=== PATIENT | female | born 1990 | race Caucasian/White ===

== ENCOUNTER → 2022-09-12 13:35 | Outpatient (BNVA) | payer OTHER, MEDICARE, MEDICAID, SELFPAY | PROVIDERS: Visit Provider Physician Assistant Surgical ==

== ENCOUNTER 2022-11-17 09:56 | Outpatient (AMB) | payer OTHER, MEDICARE, MEDICAID, SELFPAY ==
--- NOTE | 2022-11-17 09:57 | A.OFFVIS_ITS ---
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 BMI 45.9 Day Care Teacher Required: No Allergies methylphenidate [Ritalin] Allergy (Unknown, Verified 09/12/22 13:46) Unknown Medication List - Last Reconciled 11/17/22 by IVY Zhu atorvastatin 80 mg PO DAILY clonazepam 1 mg PO BEDTIME daridorexant (Quviviq) 25 mg PO BEDTIME desvenlafaxine succinate ER 50 mg PO DAILY fremanezumab-vfrm (Ajovy) 225 mg subcut [id number] levothyroxine 75 mcg PO DAILY lurasidone (Latuda) 20 mg PO DAILY omeprazole 20 mg PO DAILY prazosin 1 mg PO BEDTIME pregabalin 75 mg PO BID rimegepant (Nurtec ODT) 75 mg PO Q OTHER DAY HPI HPI Comments History of Present Illness Details Pt is here to start the [facility] Weight Management surgical weight loss program. She heard about our program from her PCP. Her goal is to lose weight and achieve a healthy lifestyle as well as to improve, if not resolve, obesity related medical conditions, including HLD. She reports first being concerned about her weight a couple years ago, highest weight to date was 310. Current weight is 303.4 with a BMI of 46.1. She has tried multiple methods of weight loss including fad diets without permanent results. She lives with and daughter. 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 She wakes at:?7 am, and goes to bed at?8 pm. Dinner is at 7 pm. 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 GERD score: 20 MAE score: 7 ESS score: 10 QOL score: 129 PFSH Surgical History History of ankle surgery History of surgery on wrist Hx of section Hx of knee surgery Hx of ovarian cystectomy Family History Mother No problems noted. Father Afib Brother No problems noted. Sister No problems noted. Daughter Asthma Social History Alcohol intake: never Patient Tobacco Use Status: Never used Tobacco Review of Systems Const All systems reviewed & are unremarkable except as noted in HPI and below Physical Exam Vital Signs: Last Vital Signs Temp 97.1 F 11/17/22 10:04 Pulse 66 11/17/22 10:04 BP 115/64 11/17/22 10:04 Pulse Ox 98 11/17/22 10:04 Oxygen Delivery Method Room Air 11/17/22 10:04 BMI result Body Mass Index 46.1 Const General: cooperative, healthy appearing and no acute distress Orientation/consciousness: patient oriented x3 HEENT Head: Yes normal to inspection Ears: hearing grossly normal bilaterally General nose exam: Normal external nose present Face and sinus: Yes normal facial exam Eyes General: appearance normal, both eyes and all related structures Resp Effort & Inspection: normal respiratory effort Auscultation: clear to auscultation bilaterally Cardio Rate: regular rate Rhythm: regular rhythm Heart sounds: S1 normal heart sound present and S2 normal heart sound present GI Inspection: Yes normal to inspection, No distended and Yes obesity Palpation (GI): Soft to palpation, nontender and no guarding Auscultation: normal bowel sounds Skin General skin exam: no rashes or lesions noted Neuro General: patient oriented x3 Extrem General: No edema Psych Appearance: grossly normal Mental Status: mental status grossly normal Speech and movement: Normal speech and movement present Affect: normal affect Attitude: cooperative Assessment & Plan Assessment & Plan (1) Morbid obesity: Code(s): E66.01 - Morbid (severe) obesity due to excess calories Plan: This is a?32 yo female who will start our SWL program to prepare for bariatric surgery.? Blood work, h pylori , CXR, ECG, Abd US and UGI have been ordered. She is being scheduled for RD and BH initial consultations. She will start SWL clas ses and watch the first three videos before her next appointment. ? Adequate sleep of 7-8 hours per night discussed, awakening at 7 am and going to bed at 8 pm ? Purchase body composition analyzer scale (Jez brady or Tarun recommended) and check weight weekly. The best time to do this is first thing in the morning after going to the bathroom. 1. Nutritional counseling: Be sure to careful read the number of scoops per shake Start with 2 Isopure shakes (Target, [employer], [employer], Amazon), (1 scoop in 8 oz low fat unsweetened almond milk each) First shake at 8am-10am, Second shake at 12pm-2pm 1 protein bar (Pure Protein bars at Target, CVS, or [employer]) at 3pm-5pm. Dinner at 7pm (10 forks of protein and 10 forks of salad/vegetables). Meal to include lean meat (beef, fish, pork, turkey, chicken), cooked vegetables or a salad with olive oil and/or fruits (berries, pears, apples, kiwi). Avoid salt, breads, potatoes, rice, pasta, desserts. Try to drink 64 oz of water daily and avoid soda and juices. ?2. Each shake would be drunk slowly, like coffee in a period of 2 hours. ?3. Cut each bar in 4 pieces and eat each piece in 30 min ?to make each bar last 2 hours. ?4. I emphasized the importance of measuring accurately the food portion and measure it carefully when serving the food on the plate ?5. The meal portions include 10 full-size forks of meat and 10 full-size forks of salad. You always eat the meat portion but you can replace up to half of the forks of salad/vegetables with rice, potatoes or pasta, or a fruit ?if you like. The less you do it the better weight loss will be. ?6. One full-size fork is what can be scooped on the fork without falling aside and not what can be bit with the fork. Use regular forks like those you find in a typical restaurant. ?7.? Please send me weight measurements as soon as possible and then once a week. Always include your diet and exercise plan. Alternatively come weekly at the office for weight checks and send me the measurements. ?8. Exercise counseling: Begin by watching a stretching for beginners video. Start slowly and begin to stretch your muscles. You should do this before and after each exercise session to prevent injury. Please join [facility] gym near your home. Ask the reconciliation manager or one of the trainers how to use the machines if you are unfamiliar with them. Start elliptical with a resistance of 2. Increase resistance by 1 every 3 min to your most comfortable resistance with a max resistance of 8. Reduce the resistance by 1 every 3 minutes back down to 2 and repeat cycles for 300 calories. Alternatively, start treadmill with a speed of 3.0 and incline of 0, increasing incline by 1 every 3 minutes to the highest comfortable level (max 6 for now) then decrease in the same fashion. Repeat p rocess to a goal of 300 calories. Goal of 2000 calories burned or more weekly. You may also consider use of the stationary bike. The easiest would be to chose the fat-burn or interval training program on the machine and do this until you reach the 300 calorie goal. Alternatively, you can manually adjust the resistance in a similar fashion as mentioned above, (resistance of 2-8 with a goal speed of 12 mph). Tracking calories is essential. 9. Alternatively start walking outside daily, tracking calories with a goal of 300 calories per day, daily. You can download the oscar [employer] which can track your time, distance and calories while walking outside. You press start in the oscar when you start and then stop when you are finished. 10.? It is important to avoid and for at least 18 months postoperatively 11. Please get labs, EKG and chest X-Ray within 1 week. 12. Discussed and answered all questions regarding?obtained consent to participate in the [facility]?Registry. 13. Please follow the diet plan exactly, without any change. If you do not like something about the plan or you feel hungry, you need to communicate with me so I can help you revise the plan. You should not change the plan yourself. Text me at [phone] 14. Goal is to lose at least 12 pounds in the first month 15. Goal is to lose 10% of your weight before surgery, which is about 30 lbs. Ultimate weight goal: 273 lbs before surgery Patient is morbidly obese and is not considered stable at this time.?I spent a total of 70 minutes reviewing/updating records, examining the patient and counseling the patient on weight management as detailed above. Orders: Orders Vitamin B12 and Folate Today E66.01 - Morbid (severe) obesity due to excess calories, E78.00 - Pure hypercholesterolemia, unspecified Comprehensive Met. Panel Today E66.01 - Morbid (severe) obesity due to excess calories, E78.00 - Pure hypercholesterolemia, unspecified C Reactive Protein Today E66.01 - Morbid (severe) obesity due to excess calories, E78.00 - Pure hypercholesterolemia, unspecified Ferritin Today E66.01 - Morbid (severe) obesity due to excess calories, E78.00 - Pure hypercholesterolemia, unspecified Hemoglobin A1c Today E66.01 - Morbid (severe) obesity due to excess calories, E78.00 - Pure hypercholesterolemia, unspecified Insulin Today E66.01 - Morbid (severe) obesity due to excess calories, E78.00 - Pure hypercholesterolemia, unspecified IRON PROFILE Today E66.01 - Morbid (severe) obesity due to excess calories, E78.00 - Pure hypercholesterolemia, unspecified Lipid Panel Today E66.01 - Morbid (severe) obesity due to excess calories, E78.00 - Pure hypercholesterolemia, unspecified PTHI Today E66.01 - Morbid (severe) obesity due to excess calories, E78.00 - Pure hypercholesterolemia, unspecified TSH reflex Free T4 Today E66.01 - Morbid (severe) obesity due to excess calories, E78.00 - Pure hypercholesterolemia, unspecified Vitamin A Today E66.01 - Morbid (severe) obesity due to excess calories, E78.00 - Pure hypercholesterolemia, unspecified Vitamin B1 Today E66.01 - Morbid (severe) obesity due to excess calories, E78.00 - Pure hypercholesterolemia, unspecified Vitamin D 25-OH Total Today E66.01 - Morbid (severe) obesity due to excess calories, E78.00 - Pure hypercholesterolemia, unspecified Zinc Today E66.01 - Morbid (severe) obesity due to excess calories, E78.00 - Pure hypercholesterolemia, unspecified ECG 12 lead EKG Today E66.01 - Morbid (severe) obesity due to excess calories, E78.00 - Pure hypercholesterolemia, unspecified FL upper GI w air Today E66.01 - Morbid (severe) obesity due to excess calories, E78.00 - Pure hypercholesterolemia, unspecified Complete Blood Count Auto Diff Today E66.01 - Morbid (severe) obesity due to excess calories, E78.00 - Pure hypercholesterolemia, unspecified H Pylori Breath Test Today E66.01 - Morbid (severe) obesity due to excess calories, E78.00 - Pure hypercholesterolemia, unspecified US abdomen comp w elastography Today E66.01 - Morbid (severe) obesity due to excess calories, E78.00 - Pure hypercholesterolemia, unspecified XR chest 2V Today E66.01 - Morbid (severe) obesity due to excess calories, E78.00 - Pure hypercholesterolemia, unspecified Referrals Behavioral Health Referral E66.01 - Morbid (severe) obesity due to excess calories, E78.00 - Pure hypercholesterolemia, unspecified Nutrition/Dietitian Referral E66.01 - Morbid (severe) obesity due to excess calories, E78.00 - Pure hypercholesterolemia, unspecified Coding Level of Care Code New Pt Level 5 (02516) Diagnoses Morbid obesity E66.01 Time Spent (min) 70
[2022-11-17 10:04] VITALS: BP 115/64; PULSE 66; TEMP 36.2; O2SAT 98; BMI 46.1
== END 2022-11-17 10:56 | disposition home or self-care (01) ==
PROVIDERS: Visit Provider Physician Assistant Surgical
DX: E66.01 Morbid (severe) obesity due to excess calories (principal); Z68.42 Body mass index [BMI] 45.0-49.9, adult
CPT/HCPCS: 99205

== ENCOUNTER → 2022-11-17 09:56 | Outpatient (BNVA) | payer OTHER, MEDICARE, MEDICAID, SELFPAY | PROVIDERS: Visit Provider Physician Assistant Surgical ==

== ENCOUNTER 2022-12-04 09:23 | Outpatient (AMB) | payer OTHER, MEDICARE, MEDICAID, SELFPAY ==
--- NOTE | 2022-12-04 09:15 | MHC.AMNUTRGE ---
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: VIDEO Initial Nutrition SWL Allergies methylphenidate [Ritalin] Allergy (Unknown, Verified 09/12/22 13:46) Unknown HPI Nutrition Presentation Reason for consult elevated BMI Diet Assmnt Details pt states she is following her plan without issue Using Isopure protein powder in almond milk. 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 not really receptive to suggestion of wearing it. SWL online classes: none Dietary counseling reduction Who buys your food self Who prepares/cooks your food self Diagnosis Nutrition problem #1 overweight/obesity As related to (etiology) #1 excess energy intake and physical inactivity As evidenced by (sign/symptom) #1 high BMI Monitoring/Goals Nutrition problem monitoring total energy intake, level of knowledge/skill, total PRO intake, total CHO intake, weight and oral fluids Outcome progress progressing Learning/Education Readiness to learn fair Stages of change action Most Recent Diabetes Results: No Data to Display [facility] Surgical History History of ankle surgery History of surgery on wrist Hx of section Hx of knee surgery Hx of ovarian cystectomy Family History Mother No problems noted. Father Afib Brother No problems noted. Sister No problems noted. Daughter Asthma Social History Alcohol intake: never Patient Tobacco Use Status: Never used Tobacco Assessment & Plan Assessment & Plan (1) Morbid obesity: Code(s): E66.01 - Morbid (severe) obesity due to excess calories Patient Instructions: Pt will be seen again. pt had no questions or concerns today. stated she was following her plan without issue. complete online classes and follow up wtih de in 6 weeks Telehealth Telehealth Location of provider rendering services: other (home address) Location of patient: address on file Patient Identification confirmed using: Name, : Yes Telehealth method: voice only Patient verbally consented to treatment: Yes Patient verbally consented to billing insurance company: Yes Patient informed of any privacy concerns related to visit: Yes Minutes spent on Phone/Video with Pt.: 10 Coding Level of Care Code Nutr Indiv Intake (35089) Diagnoses Morbid obesity E66.01 Time Spent (min) 10
--- OUTSIDE RECORDS SUMMARY | 2022-12-04 09:25 | XMS_ITS | Continuity of Care Document ---
Author Name Unknown Organization [facility] Address [address] [place] [address]- Care Team Providers Care Research Anthropologist Name Role Phone Aydee SMITH, Shaylee Willard Primary Care Physician Encounter [facility] [place] [facility] Date(s): 12/04/20 - 12/11/20 [facility] [address] [place], [place] [address] Attending Physician: Angelic Llanos MD Referring Physician: Shaylee Bajwa NP Allergies, Adverse Reactions, Alerts Substance Reaction Severity Status Voltaren diarrhea upset stomach Nausea Active Ritalin unknown - childhood reaction Active Other Food Allergy 1 [place] nuts = dry heaves Active NSAIDs 2, 3 migraines Active 1pine nuts 2States that she can tolerate toradol 3sensitivity occurs with long duration of use. Can tolerate intermittent doses Immunizations Given and Recorded Vaccine Date Status Refusal Reason Human Papillomavirus Vaccine 06/05/14 Given Human Papillomavirus Vaccine 12/23/13 Given Medications busPIRone 7.5 mg oral tablet 1 tablet = 7.5 mg, By Mouth, 3 times a day, # 90 tablet, 0 Refills, Maintenance, 08/18/19 15:40:00 EDT, Tablet Start Date: 08/18/19 Status: Ordered Emgality Prefilled Pen 120 mg/mL subcutaneous solution Subcutaneous Infusion, Every 28 days, 0 Refills, Maintenance, 08/18/19 15:39:00 EDT Start Date: 08/18/19 Status: Ordered LaMICtal 100 mg oral tablet 100 mg, 1, tablet, By Mouth, 2 times a day, # 60 tablet, Refills 0, Maintenance, 08/18/19 15:39:00 EDT Start Date: 08/18/19 Status: Ordered Latuda By Mouth, Daily, 0 Refills, Maintenance, 06/27/20 13:53:00 EST, Partial fill upon patient request if the prescription is for a schedule II opioid drug. Start Date: 06/27/20 Status: Ordered levothyroxine 0.025 mg oral tablet 1 tablet = 25 mcg, By Mouth, Daily, # 30 tablet, 0 Refills, Maintenance, 06/27/20 13:54:00 EST, Tablet, Partial fill upon patient request if the prescription is for a schedule II opioid drug. 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 Anxiety(Confirmed) Active Depression(Confirmed) Active Migraines(Confirmed) Active Obesity(Confirmed) Active Contraception management(Confirmed) Active Tobacco Use Disorder(Confirmed) Active Vital Signs Most recent to oldest [Reference Range]: 1 Height 175.26 cm (12/04/20 11:40 AM) Oxygen Saturation [94-100 %] 98 % (12/04/20 11:40 AM) Pulse Rate [55-90 bpm] 62 bpm (12/04/20 11:40 AM) Blood Pressure [90-138/55-84 mm Hg] 126/ 70mm Hg (12/04/20 11:40 AM) Respiratory Rate [16-30 br/min] 20 br/mi n (12/04/20 11:40 AM) Temperature [96.8-100.4 DegF] 97.3 DegF (12/04/20 11:40 AM) Mode of Delivery (Oxygen) Room air (12/04/20 11:40 AM) Blood pressure sites Arm, right (12/04/20 11:40 AM) Temperature Route Temporal (12/04/20 11:40 AM) Social History Social History Type Response Smoking Status Current every day zachery vasquez entered on: 12/23/13 Sex Medical Equipment Implanted Date:06/20/19Target Site:Ankle Left Description Quantity MRI [employer] Model INJ AUGMENT BONE GRAFT 1.5ML - WRGT ([id number]) 1 [employer] Unknown MANOHAR:No Information Assigning Authority: FDA Implanted Date:06/20/19Target Site:Ankle Description Quantity MRI [employer] Model Femoral Core, Fresh Aseptic, 10mm, Human Allograft, 1 JRF Ortho Unknown MANOHAR:No Information Assigning Authority: FDA
--- OUTSIDE RECORDS SUMMARY | 2022-12-04 09:25 | XMS_ITS | Continuity of Care Document ---
Author Name Unknown Organization [facility] ter Address [address] [place] [address]- Care Team Providers Care Director Of Valuation Name Role Phone Aydee SMITH, Shaylee Willard Primary Care Physician Encounter [facility] Date(s): 06/20/19 - 06/20/[address] [address]- [facility] Discharge Disposition: A-D/C Home Attending Physician: Kevin Canela MD Admitting Physician: Kevin Canela MD Referring Physician: Kevin Canela MD Allergies, Adverse Reactions, Alerts Substance Reaction Severity Status Voltaren diarrhea upset stomach Nausea Active Ritalin unknown - childhood reaction Active Other Food Allergy 1 [place] nuts = dry heaves Active NSAIDs 2, 3 migraines Active 1pine nuts 2States that she can tolerate toradol 3sensitivity occurs with long duration of use. Can tolerate intermittent doses Immunizations Given and Recorded Vaccine Date Status Refusal Reason Human Papillomavirus Vaccine 06/05/14 Given Human Papillomavirus Vaccine 12/23/13 Given Medications Amerge By Mouth, Daily, As needed for migraines, 0 Refills, Maintenance, 09/28/17 11:20:37 EDT Start Date: 09/28/17 Status: Ordered Atrovent HFA 2 puffs, Inhalation, 4 times a day, 0 Refills, Maintenance, 09/28/17 11:20:49 EDT Start Date: 09/28/17 Status: Ordered Multivitamins By Mouth, Daily, 0 Refills, Maintenance, 09/28/17 11:20:59 EDT Start Date: 09/28/17 Status: Ordered Problem List Condition Effective Dates Status Health Status Inform ant LGSIL on Pap smear(Confirmed) Active Anxiety(Confirmed) Active Depression(Confirmed) Active Migraines(Confirmed) Active Obesity(Confirmed) Active Contraception management(Confirmed) Active Tobacco Use Disorder(Confirmed) Active Vital Signs Most recent to oldest [Reference Range]: 1 2 3 Height 173.5 cm (06/20/19 12:11 PM) Weight 117.5 kg (06/20/19 12:11 PM) Oxygen Saturation [94-100 %] 100 % (06/20/19 5:30 PM) 100 % (06/20/19 5:15 PM) 100 % (06/20/19 5:00 PM) Pulse Rate [55-90 bpm] 63 bpm (06/20/19 12:11 PM) Body Mass Index [18.5-24.99] 39.03 *>HHI* (06/20/19 12:11 PM) Blood Pressure [90-138/55-84 mm Hg] 131/71mm Hg (06/20/19 5:00 PM) 132/89mm Hg (06/20/19 4:45 PM) 118/86mm Hg (06/20/19 4:30 PM) Respiratory Rate [16-30 br/min] 33 br/min *H* (06/20/19 5:30 PM) 33 br/min *H* (06/20/19 5:15 PM) 15 br/min *L* (06/20/19 5:00 PM) Temperature [96.8-100.4 DegF] 97.3 DegF (06/20/19 4:15 PM) 97.8 DegF (06/20/19 12:11 PM) Liters per Minute 2 L/min (06/20/19 1:20 PM) 2 L/min (06/20/19 1:15 PM) 2 L/min (06/20/19 1:10 PM) Mode of Delivery (Oxygen) Room air (06/20/19 5:45 PM) Room air (06/20/19 5:30 PM) Room air (06/20/19 5:15 PM) Blood pressure sites Arm, right (06/20/19 4:45 PM) Arm, left (06/20/19 4:30 PM) Arm, left (06/20/19 4:15 PM) Temperature Route Temporal (06/20/19 4:15 PM) Temporal (06/20/19 12:11 PM) Social History Social History Type Response Smoking Status Current every day zachery vasquez entered on: 12/23/13 Sex Medical Equipment Implanted Date:06/20/19Target Site:Ankle Left Description Quantity MRI Company Model INJ AUGMENT BONE GRAFT 1.5ML - WR ([id number]) 1 [employer] Unknown MANOHAR:No Information Assigning Authority: FDA
--- OUTSIDE RECORDS SUMMARY | 2022-12-04 09:25 | XMS_ITS | Continuity of Care Document ---
Author Name Unknown Organization [facility] Address [address] [place] [address]- Care Team Providers Care Professor Of Chemical Engineering Name Role Phone Aydee PRINTING PLATE MAKER, Shaylee Willard Primary Care Physician [phone] Encounter [id number] Date(s): 06/27/20 - 07/27/20 [facility] [address], [place] [address] Attending Physician: Malissa Thomas Admitting Physician: Malissa Thomas Referring Physician: AdmtrMalissa Allergies, Adverse Reactions, Alerts Substance Reaction Severity Status Voltaren diarrhea upset stomach Nausea Active Ritalin unknown - childhood reaction Active Other Food Allergy 1 [place] nuts = dry heaves Active NSAIDs 2, [...] Latuda By Mouth, Daily, 0 Refills, Maintenance, 02/21/21 13:53:00 EST, Partial fill upon patient request [...] Contraception management(Confirmed) Active Tobacco Use Disorder(Confirmed) Active Social History Social History Type Response Smoking Status Current every day zachery vasquez entered on: 12/23/13 Sex Medical Equipment Implanted Date:06/20/19Target Site:Ankle Left Description Quantity [employer] Model INJ AUGMENT BONE GRAFT 1.5ML - WRGT ([id number]) 1 [email or web address] Unknown MANOHAR:No Information Assigning Authority: FDA Implanted Date:06/20/19Target Site:Ankle Description Quantity MRI [employer] Model Femoral Core, Fresh Aseptic, 10mm, Human Allograft, 1 JRF Ortho Unknown MANOHAR:No Information Assigning Authority: FDA
--- OUTSIDE RECORDS SUMMARY | 2022-12-04 09:25 | XMS_ITS | Continuity of Care Document ---
Author Name Unknown Organization [facility] Address [address] [place] [address]- Care Team Providers Care Technical Sales Consultant Name Role Phone Aydee NIGHT SHIFT, Shaylee Willard Primary Care Physician [phone] Encounter [facility] Date(s): 12/04/20 - 01/03/21 [facility] [address] [place], [place] [address] Attending Physician: Malissa Thomas Admitting Physician: Malissa Thomas Referring Physician: AdmtrMalissa Allergies, Adverse Reactions, Alerts Substance Reaction Severity Status Voltaren diarrhea upset stomach Nausea Active Ritalin unknown - childhood reaction Active Other Food Allergy 1 [place] nuts = dry heaves Active NSAIDs 2, [...] Implanted Date:06/20/19Target Site:Ankle Left Description Quantity MRI [email or web address] Model INJ AUGMENT BONE GRAFT 1.5ML - WRGT ([id number]) 1 [employer]thian Unknown MANOHAR:No Information Assigning Authority: FDA Implanted Date:06/20/19Target Site:Ankle Description Quantity MRI [email or web address] Model Femoral Core, Fresh Aseptic, 10mm, Human Allograft, 1 JRF Ortho Unknown MANOHAR:No Information Assigning Authority: FDA
--- OUTSIDE RECORDS SUMMARY | 2022-12-04 09:25 | XMS_ITS | Continuity of Care Document ---
Author Name Unknown Organization [facility] Address [address] [place] [address]- Care Team Providers Care Door Repairman Name Role Phone Aydee SMITH, Shaylee Willard Primary Care Physician Encounter [facility] Date(s): 06/27/20 - 07/04/20 [facility] [address] [place] [address]- Attending Physician: Angelic Llanos MD Referring Physician: Shaylee Bajwa NP Allergies, Adverse Reactions, Alerts Substance Reaction Severity Status Voltaren diarrhea upset stomach Nausea Active Ritalin unknown - childhood reaction Active Other Food Allergy 1 [place] nuts = dry heaves Active NSAIDs 2, [...] oldest [Reference Range]: 1 Height 175.26 cm (06/27/20 1:51 PM) Oxygen Saturation [94-100 %] 99 % (06/27/20 1:51 PM) Pulse Rate [55-90 bpm] 62 bpm (06/27/20 1:51 PM) Blood Pressure [90-138/55-84 mm Hg] 129/ 86mm Hg (06/27/20 1:51 PM) Respiratory Rate [16-30 br/min] 20 br/mi n (06/27/20 1:51 PM) Temperature [96.8-100.4 DegF] 97.4 DegF (06/27/20 1:51 PM) Mode of Delivery (Oxygen) Room air (06/27/20 1:51 PM) Blood pressure sites Arm, right (06/27/20 1:51 PM) Temperature Route Temporal (06/27/20 1:51 PM) Social History Social History Type Response Smoking Status Current every day zachery vasquez entered on: 12/23/13 Sex Medical Equipment Implanted Date:06/20/19Target Site:Ankle Left Description Quantity MRI [employer] Model INJ AUGMENT BONE GRAFT 1.5ML - WRGT ([id number]) 1 [employer] Unknown MANOHAR:No Information Assigning Authority: FDA Implanted Date:06/20/19Target Site:Ankle Description Quantity MRI Sk[employer]iz Model Femoral Core, Fresh Aseptic, 10mm, Human Allograft, 1 JRF Ortho Unknown MANOHAR:No Information Assigning Authority: FDA
--- OUTSIDE RECORDS SUMMARY | 2022-12-04 09:25 | XMS_ITS | Continuity of Care Document ---
Author Name Unknown Organization [facility] Address [address] [place] [address]- Care Team Providers Care Student Accounts Coordinator Name Role Phone Aydee JOB TRAINING SPECIALIST, Shaylee Willard Primary Care Physician [place] [facility] Date(s): 10/04/22 - 11/03/22 [facility] [address] [place], [place] [address] Attending Physician: Malissa Thomas Admitting Physician: Malissa Thomas Referring Physician: Admtr ArPraneeth Allergies, Adverse Reactions, Alerts Substance Reaction Severity Status Voltaren diarrhea upset stomach Nausea Active Ritalin unknown - childhood reaction Active Other Food Allergy 1 [place] nuts = dry heaves Active NSAIDs 2, 3 migraines Active 1pine nuts 2States that she can tolerate toradol 3sensitivity occurs with long duration of use. Can tolerate intermittent doses Immunizations Given and Recorded Vaccine Date Status Refusal Reason Human Papillomavirus Vaccine 06/05/14 Given Human Papillomavirus Vaccine 12/23/13 Given Medications Ajovy = 225 mg, Subcutaneous Infusion, Every 28 days, 0 Refills, Maintenance, 10/04/22 15:10:00 EDT, Partial fill upon patient request if the prescription is for a schedule II opioid drug. Start Date: 10/04/22 Status: Ordered atorvastatin 10 mg oral tablet 1 tablet = 10 mg, By Mouth, Daily, # 30 tablet, 0 Refills, Maintenance, 10/04/22 15:10:00 EDT, Partial fill upon patient request if the prescription is for a schedule II opioid drug. Start Date: 10/04/22 Status: Ordered busPIRone 7.5 mg oral tablet 1 tablet [...] opioid drug. Start Date: 06/27/20 Status: Ordered Lyrica 50 mg oral capsule 1 capsule = 50 mg, By Mouth, 3 times a day, 0 Refills, Maintenance, 10/04/22 15:11:00 EDT, Capsule,Partial fill upon patient request if the prescription is for a schedule II opioid drug. Start Date: 10/04/22 Status: Ordered prazosin 1 mg oral capsule 1 mg, 1, capsule, By Mouth, Daily at bedtime, Refills 0, Maintenance, 08/18/19 15:39:00 EDT Start Date: 08/18/19 Status: Ordered Pristiq 50 mg oral tablet, extended release 1 tablet = 50 mg, By Mouth, Daily, # 30 tablet, 0 Refills, Maintenance, 08/18/19 15:40:00 EDT, ER Tablet Start Date: 08/18/19 Status: Ordered Problem List Condition Confirmation Course Effective Dates Status H ealth Status Informant LGSIL on Pap smear Confirmed Active Anxiety Confirmed Active Depression Confirmed Active Migraines Confirmed Active Obesity Confirmed Active Contraception management Confirmed Active Tobacco Use Disorder Confirmed Active Social History Social History Type Response Smoking Status Current every day zachery vasquez entered on: 12/23/13 Sex Implantable Device List Procedure Provider Procedure Date Device Type Site Osteotomy Lower Body Kevin Canela MD 06/20/19 Unkn own Ankle Left Device Identifier Serial Number Lot or Batch Number Manufacturing Date Expiration Date Distinct Identification Code MRI Safety Implantable Status Assigning Authority Unknown Unknown [id number] Unknown 04/05/21 Unknown Unknown Active Un known Procedure Provider Procedure Date Device Type Site Osteotomy Lower Body Kevin Canela MD 06/20/19 Unkn own Ankle Device Identifier Serial Number Lot or Batch Number Manufacturing Date Expiration Date Distinct Identification Code MRI Safety Implantable Status Assigning Authority Unknown [id number] Unknown Unknown 07/05/19 Unknown Unknown Active Unknown Patient Care team information Care Team Personnel Name: Aydee SMITH, Shaylee Willard Position: [facility] Outreach Member Role: PCP Address: Address: [address] [place] [address] [place] [address]- Care Team Related Persons Name: DAVON MCKEON Address: home [address] [place] [id number]
== END 2022-12-04 10:17 | disposition home or self-care (01) ==
LOC: HO.HBS 09:23
PROVIDERS: Visit Provider Dietitian, Registered
DX: E66.01 Morbid (severe) obesity due to excess calories (principal)

== ENCOUNTER → 2022-12-04 09:23 | Outpatient (BNVA) | payer OTHER, MEDICARE, MEDICAID, SELFPAY | PROVIDERS: Visit Provider Dietitian, Registered | DX: E66.01 Morbid (severe) obesity due to excess calories (principal); E78.00 Pure hypercholesterolemia, unspecified; Z71.3 Dietary counseling and surveillance | CPT/HCPCS: 97802 ==

== ENCOUNTER 2022-12-13 09:58 | Outpatient (AMB) | payer OTHER, MEDICARE, MEDICAID, SELFPAY ==
--- NOTE | 2022-12-13 10:00 | MHC.OFFVISWM ---
Intake VS Expanded 12/13/22 10:05 Height 5 ft 8 in Weight 298 lb 9.6 oz BMI 45.4 BP 122/61 Blood Pressure Location Rt brachial Blood Pressure Position Sitting Pulse 63 Pulse Source Pulse Oximeter Temp 97.1 F Temperature Source Temporal Artery Scan Pulse Oximetry 97 Oxygen Delivery Method Room Air Body Fat 147.4 Body Fat Percentage 49.4 Free Fat Mass 151.0 Muscle Mass 143.6 Visceral Mass 14.0 Water Mass 108.2 BMR 2,192 Intake Visit Reasons: (OV) F/U SWL + H.Pylori Signal System Testing Maintainer Required: No Allergies methylphenidate [Ritalin] Allergy (Unknown, Verified 12/13/22 10:17) Unknown Medication List - Last Reconciled 12/13/22 by IVY Zhu atorvastatin 80 mg PO DAILY clonazepam 1 mg PO BEDTIME daridorexant (Quviviq) 25 mg PO BEDTIME desvenlafaxine succinate ER 50 mg PO DAILY fremanezumab-vfrm (Ajovy) 225 mg subcut [id number] levothyroxine 75 mcg PO DAILY lurasidone (Latuda) 20 mg PO DAILY omeprazole 20 mg PO DAILY prazosin 1 mg PO BEDTIME pregabalin 75 mg PO BID rimegepant (Nurtec ODT) 75 mg PO Q OTHER DAY HPI HPI Comments History of Present Illness Details The patient is a pleasant 32 year old female who returns to the clinic for pre-operative surgical weight loss management. They were last seen in the office on 11/17/22, recorded weight at that time was 303.4 pounds, with a BMI of 46.1. Today's weight is 298.6 pounds and BMI is 45.4. There has been a weight loss of 4.8 pounds since initiating the surgical weight loss program on 11/17/22 with a total body weight loss of 1.58 %. Pre op work up completed as follows: SWL classes:? 0/ BH appts: 12/18/22 ? ? RD appts: needs f/u Labs: not yet done H. pylori: 12/13/22 CXR: not yet done EKG: not yet done ABD U/S: 12/22/22 UGI: 02/09/23 The patient reports thngs are going easier than expected. denies any issues. Current meal plan includes: 2 Isopure shakes, (1 scoop in 8 oz low fat unsweetened almond milk each) First shake at 8am-10am, Second shake at 12pm-2pm 1 protein bar (Pure Protein bars at [employer], [employer], or [employer]) at 3pm-5pm. Dinner at 7pm (10 forks of protein and 10 forks of salad/vegetables). 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 Father Afib Brother No problems noted. Sister No problems noted. Daughter Asthma Social History Alcohol intake: never Patient Tobacco Use Status: Never used Tobacco Physical Exam Const General: healthy appearing and no acute distress Resp Effort & Inspection: normal respiratory effort Auscultation: clear to auscultation bilaterally Cardio Rate: regular rate Rhythm: regular rhythm GI Auscultation: normal bowel sounds Extrem General: Yes normal to inspection Assessment & Plan Assessment & Plan (1) Morbid obesity: Code(s): E66.01 - Morbid (severe) obesity due to excess calories Plan: Making some initial progress, able to accurately report meal plan Continue Encouraged to exercise when able reminded of upcoming appts Coding Level of Care Code Est Pt Level 3 (45322) Diagnoses Morbid obesity E66.01
[2022-12-13 10:05] VITALS: BP 122/61; PULSE 63; TEMP 36.2; O2SAT 97; BMI 45.4
== END 2022-12-13 10:25 | disposition home or self-care (01) ==
PROVIDERS: Visit Provider Physician Assistant Surgical
DX: E66.01 Morbid (severe) obesity due to excess calories (principal)
CPT/HCPCS: 99213

== ENCOUNTER → 2022-12-13 09:58 | Outpatient (BNVA) | payer OTHER, MEDICARE, MEDICAID, SELFPAY | PROVIDERS: Visit Provider Physician Assistant Surgical ==

== ENCOUNTER 2022-12-13 17:06 | Outpatient (REF) | payer OTHER, MEDICARE, MEDICAID, SELFPAY ==
[2022-12-14 12:41] LABS: H Pylori Breath Test Negative (Negative)
== END 2022-12-13 17:07 | disposition home or self-care (01) ==
LOC: HO.LNP 17:06
PROVIDERS: Visit Provider Physician Assistant Surgical
DX: E66.01 Morbid (severe) obesity due to excess calories (principal); E78.00 Pure hypercholesterolemia, unspecified; Z11.0 Encounter for screening for intestinal infectious diseases
CPT/HCPCS: 83013

== ENCOUNTER 2022-12-18 10:20 | Outpatient (AMB) | payer OTHER, MEDICARE, MEDICAID, SELFPAY ==
--- NOTE | 2022-12-18 10:22 | A.OFFWM_ITS ---
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: VIDEO Intake Allergies methylphenidate [Ritalin] Allergy (Unknown, Verified 12/13/22 10:17) Unknown PFSH Surgical History History of ankle surgery History of surgery on wrist Hx of section Hx of knee surgery Hx of ovarian cystectomy Family History Mother No problems noted. Father Afib Brother No problems noted. Sister No problems noted. Daughter Asthma Social History Alcohol intake: never Patient Tobacco Use Status: Never used Tobacco Behavioral Health Assessment Weight Management Therapy Therapy Notes Details PT is a 32 year old who presents for initial assessment as part of surgical Weight-loss program. PT presents as optimistic about being able to loss weight required prior to surgert and states she's doing well with current meal plan. PT report a history of mental health services, previously diagnosed with PTSD, Anxiety, Bipolar Dx and sleep issues. She is not in formal treatment for mental health but her PCP is currently prescribing with Psych. PT denies any concern/hx of Substance use and/or hospitalizations due to mental health. HX ofSI and self-harm was disclosed, however patient presents as stable today and denied any risk concern but, scores in PHQ-9 indicate active Sx of depression. Pt will f/up in about 4 weeks to monitor adjustment to program expectations, MH status and for support. PHQ-9 will be repeated next oscar. Presenting Concerns Referral Source P Provider. Reason for referral Completion of behavioral health assessment as part of process for weight-loss surgery. Precipitating Event Health issues and physical functioning. Living Situation Current Living Situation Own At risk of losing current housing? No Satisfied with current living situation? Yes Comments PT lives with spouse and 4 year old daughter. Food/Weight/Diet Expectations of change PT wants to lose weight and being healthy. History/Relationship with food PT reports she eats when she is told or has to eat or because is hungry. Used to skip meals , dinner was main meal (chicken/veggies). History/Relationship with weight Most of weight gain after . Lowest weight around 200Lbs before turning 28. Highest weight when she started the program. History/Relationship with dieting Keto, intermittent fasting, counting calories, diet/exercise. When asked for long PT reported she never payed attention. Binge Eating Do you frequently eat large amounts of food in short periods of time, not feeling physically hungry? No Do you feel out of control when you eat a large amount of food in a short period of time? No Do you eat large amounts of food rapidly and typically alone? No Night Eating Do you wake up at least once during the night to eat? No If you wake up in the night, do you find that it is necessary to eat something in order to fall back asleep? No Do you have little or no appetite in the morning and feel very hungry in the evening, often overeating between dinner and when you go to bed? No Social History Family history and relationship PT lives with spouse, they have been together since 2012. They have 1 daughter together. Parents are alive, she has 2 siblings. She's close to her dad. Distant relationship with other family members. 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 Developmental history and status Diagnosed with ADHD in childhood. She was in special education while in school. Social support None. Community support PCP. Episcopalian/Spirituality None reported. Cultural/Ethnic information white-. Legal Involvement and History Current or historical involvement with the legal system? None. Education Highest grade completed Some college. Preferred learning style Written, Learn by doing and Visual Currently enrolled in educational program? Yes ([employer] school. ) Interested in further educational program? No Educational Interests/Skills Depends on the day. Employment Employment Status Unemployed Wants help to find employment? 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 Financial Situation Describe current financial situation Financial struggles are a major source of stress Financial assistance? [employer] and Disability Service Service? 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 ) Mental Health and Addiction Treatment Current/Past substance abuse? No Current/Past addictive behavior concerns? No Psychiatric history PT Reports she has been in therapy before she had her daughter. Currently in a waiting list for counseling. Diagnosed with PTSD, Bipolar Dx, insomnia/night terrors, Generalized anxiety. PCP is prescribing with Psych meds (Clonazepam 1mg, prazosin 1mg, Latuda 20mg). She feels table with current meds. PT denies ever been in crisis and/or hospitalized for MH. Reported Hx of SI and self-harm (cutting) long time ago. Denied any other-harm. Medical and Physical Health Summary Additional Medical History not covered in history None. Sexual History concerns None Physical exam in the last year? Yes Pain Screening Current pain? Yes Pain in the last few months? 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 Medications Is the patient compliant with medications? Yes Does the patient have Gao Guardian in place? Not applicable Does the patient use complimentary health approaches? No Trauma/Abuse History History of trauma? Yes (PT declined to answer as she doesn't want to be triggered. ) Comments Pat DCF involvement in her childhood and with her daughter. Questionnaires PHQ-9 Over the last 2 weeks, how often have you been bothered by any of the following problems? 1. Little interest or pleasure in doing things: not at all 2. Feeling down, depressed, or hopeless: several days 3. Trouble falling or staying asleep, or sleeping too much: nearly every day 4. Feeling tired or having little energy: nearly every day 5. Poor appetite or overeating: not at all 6. Feeling bad about yourself - or that you are a failure or have let yourself or your family down: several days 7. Trouble concentrating on things, such as reading the newspaper or watching television: not at all 8. Moving or speaking so slowly that other people could have noticed. Or the opposite - being so fidgety or restless that you have been moving around a lot more than usual: not at all 9. Thoughts that you would be better off or of hurting yourself in some way: several days Total score: 9 Depression Screening Interpretation: Positive 21758 - PHQ-9 Billing: Yes Source: Developed by Drs. Cj Matos, Aimee Lamb, Harvey Abdi and colleagues, with an educational ever from [employer]. Binge Eating Scale Group 1 A. I don't feel self-conscious about my wt. or body size when I'm with others. B. I feel concerned about how I look to others, but it normally does not make me fell disappointed with myself C. I do get self-conscious about my appearance and wt. which makes me feel disappointed in myself. D. I feel very self-conscious about my wt. and frequently I feel intense shame and disgust for myself. I try to avoid social contacts because of my self- consciousness. Response Group 1: D Group 2 A. I don't have any difficulty eating slowly in the proper manner. B. Although I seem to gobble down foods, I don't end up feeling stuffed because of eating to much. C. At times, I tend to eat quickly and then, I feel uncomfortably full afterwards. D. I have the habit of bolting down my food, without really chewing it. When this happens I usually feel uncomfortably stuffed because I've eaten to much. Response Group 2: C Group 3 A. I feel capable to control my eating urges when I want to. B. I feel like I have failed to control my eating more than the average person. C. I feel utterly helpless when it comes to feeling in control of my eating urges. D. Because I feel so helpless about controlling my eating I have become very desperate about trying to get control. Response Group 3: A Group 4 A. I don't have the habit of eating when I'm bored. B. I sometimes eat when I'm bored, but often I'm able to get busy and get my mind off food. C. I have a regular habit of eating when I'm bored, but occasionally, I can use some other activity to get my mind off eating. D. I have a strong habit of eating when I'm bored. Nothing seems to help me breath the habit. Response Group 4: A Group 5 A. I'm usually physically hungry when I eat something. B. Occasionally, I eat something on impulse even though I really am not hungry. C. I have the regular habit of eating foods, that I might not really enjoy, to satisfy a hungry feeling even though physically, I don't need the food. D. Although I'm not physically hungry, I get a hungry feeling in my mouth that only seems to be satisfied when I eat a food, like sandwich, that fills my mouth. Sometimes, when I eat the food to satisfy my mouth hunger, I then spit the food out so I won't gain weight. Response Group 5: B Group 6 A. I don't feel any guilt or self-hate after I overeat. B. After I overeat, occasionally I feel guilt or self-hate. C. Almost all the time I experience strong guilt or self-hate after I overeat. Response Group 6: B Group 7 A. I don't lose total control of my eating when dieting even after periods when I overeat. B. Sometimes when I eat a forbidden food on a diet, I feel like I blew it and eat even more. C. Frequently, I have the habit of saying to myself, I've blown it now, why not go all the way, when I overeat on a diet. When that happens I eat more. D. I have a regular habit of starting a strict diets for myself but I break the diets by going on an eating binge. My life seems to be either a feast or famine. Response Group 7: A Group 8 A. I rarely eat so much food that I feel uncomfortably stuffed afterwards. B. Usually about once a month, I each such a quantity of food, I end up feeling very stuffed. C. I have regular periods during the month when I eat large amounts of food, either at mealtime or at snacks. D. I eat so much food that I regularly feel quite uncomfortable after eating and sometimes a bit nauseous. Response Group 8: A Group 9 A. My level of calorie intake does not go up very high or go down very low on a regular basis. B. Sometimes after I overeat, I will try to reduce my caloric intake to almost nothing to compensate for the excess calories I've eaten. C. I have a regular habit of overeating during the night. It seems that my routine is not to be hungry in the morning but overeat in the evening. D. In my adult years, I have had week-long periods where I practically starve myself. This follows periods when I overeat. It seems I live a life of either feast or famine. Response Group 9: C Group 10 A. I usually am able to stop eating when I want to. I know when enough is enough. B. Every so often, I experience a compulsion to eat which I can't seem to control. C. Frequently, I experience strong urges to eat which I seem unable to control, but at other times I can control my eating urges. D. I feel incapable of controlling urges to eat. I have a fear of not being able to stop eating voluntarily. Response Group 10: B Group 11 A. I don't have any problem stopping eating when I feel full. B. I usually can stop eating when I feel full but occasionally overeat leaving me feeling uncomfortably stuffed. C. I have a problem stopping eating once I start and usually I feel uncomfortably stuffed after I eat a meal. D. Because I have a problem not being able to stop eating when I want, I somet imes have to induce vomiting to relieve my stuffed feeling. Response Group 11: A Group 12 A. I seem to eat just as much when I'm with others, Family social gatherings as when I'm by myself. B. Sometimes, when I'm with other persons, I don't eat as much as I want to eat because I'm self-conscious about my eating. C. Frequently, I eat only a small amount of food when others are present, because I'm very embarrassed about my eating. D. I feel so ashamed about overeating that I pick times to overeat when I know no one will see me. I feel like a closet eater. Response Group 12: A Group 13 A. I eat three meals a day with only an occasional between meal snack. B. I eat 3 meals a day, but I also normally snack between meals. C. When I am snacking heavily, I get in the habit of skipping regular meals. D. There are regular periods when I seem to be continually eating, with no planned meals. Response Group 13: C Group 14 A. I don't think much about trying to control unwanted eating urges. B. At least some of the time, I feel my thoughts are pre-occupied with trying to control my eating urges. C. I feel that frequently I spend much time thinking about how much I ate or ab out trying not to eat anymore. D. It seems to me that most of my waking hours are pre-occupied by thoughts about eating or not eating. I feel like I'm constantly struggling not to eat. Response Group 14: A Group 15 A. I don't think about food a great deal. B. I have strong craving for food but they last only for brief periods of time. C. I have days when I can't seem to think about anything else but food. D. Most of my days seem to be pre-occupied with thoughts about food. I feel like I live to eat. Response Group 15: A Group 16 A. I usually know whether or not I'm physically hungry. I take the right portion of food to satisfy me. B. Occasionally, I feel uncertain about knowing whether or not I'm physically hungry. A these times it's hard to know how much food I should take to satisfy me. C. Even though I might know how many calories I should eat, I don't have any idea what is a normal amount of food for me. Response Group 16: C Binge Eating Score: 14 Score less than 17 Minimal Risk Score between 18-26 Moderate Risk Score between 27-46 High Risk Assessment & Plan Assessment & Plan (1) Bipolar 2 disorder: Code(s): F31.81 - Bipolar II disorder (2) Generalized anxiety disorder: Code(s): F41.1 - Generalized anxiety disorder (3) Sleeping difficulties: Code(s): G47.9 - Sleep disorder, unspecified (4) PTSD (post-traumatic stress disorder): Code(s): F43.10 - Post-traumatic stress disorder, unspecified Plan Not cleared today. F/up in about a month. Will repeat PHQ-9. Telehealth Telehealth Location of provider rendering services: other (Home office [place], [place].) Patient Identification confirmed using: Name, : Yes Telehealth method: video Patient verbally consented to treatment: Yes Patient verbally consented to billing insurance company: Yes Patient informed of any privacy concerns related to visit: Yes Minutes spent on Phone/Video with Pt.: 45 Coding Level of Care Code New Pt Tele Psy Diag Ke (17811) Patient Type New Diagnoses Bipolar 2 disorder F31.81 Generalized anxiety disorder F41.1 Sleeping difficulties G47.9 PTSD (post-traumatic stress disorder) F43.10 Time Spent (min) 45
== END 2022-12-18 11:11 | disposition home or self-care (01) ==
LOC: HO.HBST 10:39
PROVIDERS: Visit Provider Counselor Mental Health
DX: F31.81 Bipolar II disorder (principal); F41.1 Generalized anxiety disorder; G47.9 Sleep disorder, unspecified; F43.10 Post-traumatic stress disorder, unspecified
CPT/HCPCS: 90791

== ENCOUNTER → 2022-12-18 10:20 | Outpatient (BNVA) | payer OTHER, MEDICARE, MEDICAID, SELFPAY | PROVIDERS: Visit Provider Counselor Mental Health ==

== ENCOUNTER 2022-12-22 10:40 | Outpatient (REF) | payer OTHER, MEDICARE, MEDICAID, SELFPAY ==
--- NOTE | ~2022-12-22 | XR_ITS ---
EXAMINATION: XR CHEST CLINICAL INFORMATION: Preop chest x-ray, morbid obesity due to excess calories COMPARISON: None available. TECHNIQUE: 2 views of the chest were obtained. FINDINGS: Lung volumes are low. There is no gross pneumothorax. Heart size is normal. No pleural effusion. No focal consolidation to suggest pneumonia. XR/XR chest 2V IMPRESSION: No evidence of pneumonia.
== END 2022-12-22 10:41 | disposition home or self-care (01) ==
LOC: HO.US 10:40
PROVIDERS: Visit Provider Physician Assistant Surgical
DX: E66.01 Morbid (severe) obesity due to excess calories (principal); E78.00 Pure hypercholesterolemia, unspecified
CPT/HCPCS: 71046

== ENCOUNTER 2023-01-05 08:35 | Outpatient (REF) | payer OTHER, MEDICARE, MEDICAID, SELFPAY ==
--- NOTE | ~2023-01-05 | US_ITS ---
EXAMINATION: US COMPLETE ABDOMEN WITH LIVER ELASTOGRAPHY CLINICAL INFORMATION: Obesity. COMPARISON: None available. TECHNIQUE: Real-time imaging of the abdominal viscera. Noninvasive ultrasound liver fibrosis assessment is performed using Nessa ElastPQ point quantification shear wave elastography (2D-SWE) with a C5-2 MHz transducer. Multiple elastography samples are obtained. FINDINGS: PANCREAS: Limited. The visualized pancreatic head and body are normal in appearance. The remainder of the pancreas is obscured from visualization by the overlying bowel gas. ABDOMINAL AORTA: The proximal, middle, and distal aortic segments are normal in caliber. INFERIOR VENA CAVA: Visualized portions are normal. LIVER: The liver demonstrates normal size, contour and increased echogenicity. No focal lesion or intrahepatic biliary duct dilatation. The right lobe measures 16.9 cm in length. The left lobe measures 9.5 cm in length. Portal flow is towards the liver (hepatopetal). Shear wave liver elastography median stiffness is 1.60 m/s (reference: normal median stiffness is 1.3 m/s or less). IQR/median stiffness to assess sampling precision is 0.46 (reference: good quality data set is IQR/median stiffness of 0.15 or less). GALLBLADDER: Normal. The gallbladder is physiologically distended without evidence of stones, sludge, polyps, wall thickening or pericholecystic fluid. COMMON BILE DUCT: Normal in caliber measuring 0.4 cm in diameter. RIGHT KIDNEY: Normal. No hydronephrosis. No renal calculi or focal parenchymal lesions. The kidney measures 11.4 cm in maximum dimension. LEFT KIDNEY: Normal. No hydronephrosis. No renal calculi or focal parenchymal lesions. The kidney measures 11.9 cm in maximum dimension. SPLEEN: Normal. The spleen measures 12.5 cm in maximum dimension. FREE FLUID: None. US/US abdomen comp w elastography IMPRESSION: 1. There is generalized increase in hepatic echotexture, consistent with fatty infiltration or hepatocellular disease. Please correlate clinically. No focal hepatic mass or intrahepatic biliary dilatation is seen. 2. Liver elastography: Although measurements appear to rule out compensated advanced chronic liver disease, there is statistical variability of the sampling which decreases accuracy. REFERENCE: Society of Radiologists in Ultrasound Liver Stiffness Thresholds (2019): LIVER STIFFNESS THRESHOLDS: *Liver Stiffness equal or less than 1.3 m/s: High probability of being normal. *Liver Stiffness less than 1.7 m/s: In the absence of other known clinical signs, rules out compensated advanced chronic liver disease. *Liver Stiffness 1.7-2.1 m/s: Suggestive of compensated advanced chronic liver disease but need further test for confirmation. *Liver Stiffness over 2.1 m/s: Rules in compensated advanced chronic liver disease. *Liver Stiffness over 2.4 m/s: Suggestive of clinically significant portal hypertension. QUALITY OF DATA SET: *IQR/Median value equal or less than 0.15 implies a quality data set. *IQR/Median value over 0.15 implies a poor quality data set. SIGNIFICANT CHANGE FROM PRIOR EXAM: Significant change if liver stiffness measurement is 10% or greater from prior exam. OTHER CONSIDERATIONS: The stage of liver fibrosis may be overestimated in the setting of acute hepatitis, liver inflammation, elevated liver function tests, hepatic vascular congestion, obstructive cholestasis, non-fasting state, and infiltrative diseases such as amyloidosis and lymphoma. In some patients with NAFLD, the liver stiffness thresholds for compensated advanced chronic liver disease may be lower. In causes other than viral hepatitis and NAFLD, liver stiffness thresholds are not well established.
[2023-01-05 09:20] LABS: MANUAL DIFF FLAG NO
[2023-01-05 10:03] LABS: Basophils Absolute Auto 0.1 X10*3/uL (0.0-0.2); Basophils Percent Auto 1.1 % (0-2); Eosinophils Absolute Auto 0.3 X10*3/uL (0.0-0.4); Eosinophils Percent Auto 3.8 % (0-4); Hematocrit 38.4 % (37.0-47.0); Hemoglobin 12.4 g/dl (12.0-16.0); Imm Gran Abs Auto 0.01 X10*3/uL (0.00-0.03); Imm Gran Pct Auto 0.2 % (0.0-0.4); Lymphocytes Absolute Auto 2.1 X10*3/uL (1.2-4.9); Lymphocytes Percent Auto 32.3 % (20-40); Mean Corpuscular HGB Conc 32.3 g/dl (31.0-35.0); Mean Corpuscular Hemoglobin 25.8 pg (27.0-33.0); Mean Corpuscular Volume 79.8 fL (80.0-98.0); Mean Platelet Volume 9.7 fL (9.4-12.3); Monocytes Absolute Auto 0.7 X10*3/uL (0.1-1.2); Monocytes Percent Auto 9.8 % (2-11); Neutrophils Absolute Auto 3.5 x10*3/uL (2.0-8.3); Neutrophils Percent Auto 52.8 % (45-73); Platelet Count 312 X10*3/uL (160-400); Red Blood Count 4.81 X10*6/uL (4.20-5.50); Red Cell Distribution Width 13.7 % (11.0-16.0); White Blood Count 6.6 X10*3/uL (4.8-10.8)
[2023-01-05 10:29] LABS: Estimated Average Glucose 103 mg/dL; Hemoglobin A1c % 5.2 % (<6.0)
[2023-01-05 11:18] LABS: Folate 3.1 ng/mL (> or = 4.0); Vitamin B12 515 pg/mL (200-900)
[2023-01-05 11:41] LABS: Alanine Aminotransferase 19 U/L (0-31); Albumin Level 3.9 g/dL (3.5-5.0); Alkaline Phosphatase 83 U/L (39-117); Anion Gap 16 (12-20); Aspartate Amino Transferase 16 U/L (5-31); Bilirubin Total 0.3 mg/dL (0.0-1.0); Blood Urea Nitrogen 12 mg/dL (9-16); C Reactive Protein 0.49 mg/dL (< or = 0.50); Calcium 9.7 mg/dL (8.4-10.2); Carbon Dioxide 22 mmol/L (22-29); Chloride 105 mmol/L (96-108); Cholesterol 169 mg/dL (<200); Estimated Glomerular Filt Rate > 60; Ferritin 16 ng/mL (10-122); Glucose Random 92 mg/dL (60-115); HDL Cholesterol 44 mg/dL (>40); Iron 31 mcg/dL (30-160); LDL Cholesterol Calculated 95 mg/dL (<100); Percent Iron Saturation 10 % (15-50); Potassium 3.5 mmol/L (3.3-5.1); Sodium 139 mmol/L (135-145); TSH reflex Free T4 3.97 uIU/mL (0.32-4.0); Total Iron Binding Capacity 296 mcg/dL (228-428); Total Protein 7.1 g/dL (6.5-8.0); Triglycerides 153 mg/dL (<150); Unsaturated Iron Binding 265 ug/dL; Vitamin D 25-OH Total 32.7 ng/mL (>30)
[2023-01-05 12:20] LABS: Insulin 24 uU/mL (2-29)
[2023-01-07 14:59] LABS: Calcium (PTHI) 9.5 mg/dL (8.6-10.2); PTHI 85 pg/mL (16-77)
[2023-01-10 02:14] LABS: Zinc 67 mcg/dL (60-130)
[2023-01-11 00:19] LABS: Vitamin A 47 mcg/dL (38-98)
[2023-01-11 15:09] LABS: Vitamin B1 9 nmol/L (8-30)
== END 2023-01-05 08:36 | disposition home or self-care (01) ==
LOC: HO.US 08:35
PROVIDERS: Visit Provider Physician Assistant Surgical
DX: E66.01 Morbid (severe) obesity due to excess calories (principal); E78.00 Pure hypercholesterolemia, unspecified
CPT/HCPCS: 36415; 76705; 76981; 80053; 80061; 82306; 82607; 82728; 82746; 83036; 83525; 83540; 83970; 84425; 84443; 84590; 84630; 85025; 86140

== ENCOUNTER 2023-01-10 10:00 | Outpatient (AMB) | payer OTHER, MEDICARE, MEDICAID, SELFPAY ==
--- NOTE | 2023-01-10 10:10 | A.OFFWM_ITS ---
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: VIDEO F/U BH Allergies methylphenidate [Ritalin] Allergy (Unknown, Verified 01/16/23 16:02) Unknown [facility] Surgical History Hx of ovarian cystectomy Hx of section History of surgery on wrist History of ankle surgery Hx of knee surgery Family History Mother No problems noted. Father Afib Brother No problems noted. Sister No problems noted. Daughter Asthma Social History Alcohol intake: never Patient Tobacco Use Status: Never used Tobacco Behavioral Health Assessment Weight Management Therapy Therapy Notes Details PT is a 32 year old who presents for a follow up. She had BH intake on 12/18 as part of surgical Weight-loss program. PT reports a history of mental health services, previously diagnosed with PTSD, Anxiety, Bipolar Dx and sleep issues. She is not in formal treatment for mental health but her PCP is currently prescribing with Psych. PT denies any concern/hx of Substance use and/or hospitalizations due to mental health. History of SI and self-harm was disclosed, however patient presents as stable today and denied any risk concern in the past year. BES scores suggest minimal risk for binge eating behavior and PT declined concerns with emotional eating. Today PT presents open, cooperative and optimistic weight-loss journey. We repeated PHQ-9 today and scores were low suggesting no active depression. This staff writer provided PT with strategies for mood management and has encourage her to start counseling. Pt has been cleared from the behavioral health standpoint, however will continue meeting with this provider for support. Presenting Concerns Referral Source P Provider. Reason for referral Completion of behavioral health assessment as part of process for weight-loss surgery. Precipitating Event Health issues and physical functioning. Living Situation Current Living Situation Own At risk of losing current housing? No Satisfied with current living situation? Yes Comments PT lives with spouse and 4 year old daughter. Food/Weight/Diet Expectations of change PT wants to lose weight and being healthy. History/Relationship with food PT reports she eats when she is told or has to eat or because is hungry. Used to skip meals, dinner was the main meal (chicken/veggies). History/Relationship with weight Most of weight gain after . Lowest weight around 200Lbs before turning 28. Highest weight when she started the program. History/Relationship with dieting Keto, intermittent fasting, counting calories, diet/exercise. When asked for long PT reported she never payed attention. Binge Eating Do you frequently eat large amounts of food in short periods of time, not feeling physically hungry? No Do you feel out of control when you eat a large amount of food in a short period of time? No Do you eat large amounts of food rapidly and typically alone? No Night Eating Do you wake up at least once during the night to eat? No If you wake up in the night, do you find that it is necessary to eat something in order to fall back asleep? No Do you have little or no appetite in the morning and feel very hungry in the evening, often overeating between dinner and when you go to bed? No Social History Family history and relationship PT lives with spouse, they have been together since 2012. They have 1 daughter together. Parents are alive, she has 2 siblings. She's close to her dad. Distant relationship with other family members. 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 Developmental history and status Diagnosed with ADHD in childhood. She was in special education while in school. Social support Her pets. Community support PCP. Muslim/Spirituality None reported. Cultural/Ethnic information white-. Legal Involvement and History Current or historical involvement with the legal system? None. Education Highest grade completed Some college. Preferred learning style Written, Learn by doing and Visual Currently enrolled in educational program? Yes ([employer] school. ) Interested in further educational program? No Educational Interests/Skills Animal training, good with horses. Employment Employment Status Unemployed Wants help to find employment? 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 Financial Situation Describe current financial situation Financial struggles are a major source of stress Financial assistance? Food [place] and Disability Service Service? 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 ) Mental Health and Addiction Treatment Current/Past substance abuse? No Current/Past addictive behavior concerns? No Psychiatric history PT Reports she had been in therapy before she had her daughter. Currently on a waiting list for counseling. Diagnosed with PTSD, Bipolar Dx, insomnia/night terrors, and Generalized anxiety. PCP is prescribing Psych meds (Clonazepam 1mg, prazosin 1mg, Latuda 20mg, Lunesta 1mg). She feels table with current meds. PT denies ever being in crisis and/or hospitalized for MH. Reported Hx of SI and self-harm (cutting) a long time ago but nothing within the last year. Medical and Physical Health Summary Additional Medical History not covered in history None. Sexual History concerns None Physical exam in the last year? Yes Pain Screening Current pain? Yes Pain in the last few months? 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 Medications Is the patient compliant with medications? Yes Does the patient have Gao Guardian in place? Not applicable Does the patient use complimentary health approaches? No Trauma/Abuse History History of trauma? Yes (PT declined to answer as she doesn't want to be triggered. ) Verbal/Emotional Abuse Current Current Involvement By None Reported Comments Past DCF involvement in her childhood and with her daughter. Additional Mandated Report Required None Reported Questionnaires PHQ-9 Over the last 2 weeks, how often have you been bothered by any of the following problems? 1. Little interest or pleasure in doing things: several days 2. Feeling down, depressed, or hopeless: several days 3. Trouble falling or staying asleep, or sleeping too much: not at all (Since started the Lunesta) 4. Feeling tired or having little energy: several days (Related to medical conditions she has. ) 5. Poor appetite or overeating: not at all 6. Feeling bad about yourself - or that you are a failure or have let yourself or your family down: not at all 7. Trouble concentrating on things, such as reading the newspaper or watching television: not at all 8. Moving or speaking so slowly that other people could have noticed. Or the opposite - being so fidgety or restless that you have been moving around a lot more than usual: several days (Feeling very anxious.) 9. Thoughts that you would be better off or of hurting yourself in some way: not at all Total score: 4 Source: Developed by Drs. Cj Matos, Aimee Lamb, Harvey Abdi and colleagues, with an educational ever from [employer]. Binge Eating Scale Group 1 A. I don't feel self-conscious about my wt. or body size when I'm with others. B. I feel concerned about how I look to others, but it normally does not make me fell disappointed with myself C. I do get self-conscious about my appearance and wt. which makes me feel disappointed in myself. D. I feel very self-conscious about my wt. and frequently I feel intense shame and disgust for myself. I try to avoid social contacts because of my self- consciousness. Response Group 1: D Group 2 A. I don't have any difficulty eating slowly in the proper manner. B. Although I seem to gobble down foods, I don't end up feeling stuffed because of eating to much. C. At times, I tend to eat quickly and then, I feel uncomfortably full afterwards. D. I have the habit of bolting down my food, without really chewing it. When this happens I usually feel uncomfortably stuffed because I've eaten to much. Response Group 2: C Group 3 A. I feel capable to control my eating urges when I want to. B. I feel like I have failed to control my eating more than the average person. C. I feel utterly helpless when it comes to feeling in control of my eating urges. D. Because I feel so helpless about controlling my eating I have become very desperate about trying to get control. Response Group 3: A Group 4 A. I don't have the habit of eating when I'm bored. B. I sometimes eat when I'm bored, but often I'm able to get busy and get my mind off food. C. I have a regular habit of eating when I'm bored, but occasionally, I can use some other activity to get my mind off eating. D. I have a strong habit of eating when I'm bored. Nothing seems to help me breath the habit. Response Group 4: A Group 5 A. I'm usually physically hungry when I eat something. B. Occasionally, I eat something on impulse even though I really am not hungry. C. I have the regular habit of eating foods, that I might not really enjoy, to satisfy a hungry feeling even though physically, I don't need the food. D. Although I'm not physically hungry, I get a hungry feeling in my mouth that only seems to be satisfied when I eat a food, like sandwich, that fills my mouth. Sometimes, when I eat the food to satisfy my mouth hunger, I then spit the food out so I won't gain weight. Response Group 5: B Group 6 A. I don't feel any guilt or self-hate after I overeat. B. After I overeat, occasionally I feel guilt or self-hate. C. Almost all the time I experience strong guilt or self-hate after I overeat. Response Group 6: B Group 7 A. I don't lose total control of my eating when dieting even after periods when I overeat. B. Sometimes when I eat a forbidden food on a diet, I feel like I blew it and eat even more. C. Frequently, I have the habit of saying to myself, I've blown it now, why not go all the way, when I overeat on a diet. When that happens I eat more. D. I have a regular habit of starting a strict diets for myself but I break the diets by going on an eating binge. My life seems to be either a feast or famine. Response Group 7: A Group 8 A. I rarely eat so much food that I feel uncomfortably stuffed afterwards. B. Usually about once a month, I each such a quantity of food, I end up feeling very stuffed. C. I have regular periods during the month when I eat large amounts of food, either at mealtime or at snacks. D. I eat so much food that I regularly feel quite uncomfortable after eating and sometimes a bit nauseous. Response Group 8: A Group 9 A. My level of calorie intake does not go up very high or go down very low on a regular basis. B. Sometimes after I overeat, I will try to reduce my caloric intake to almost nothing to compensate for the excess calories I've eaten. C. I have a regular habit of overeating during the night. It seems that my routine is not to be hungry in the morning but overeat in the evening. D. In my adult years, I have had week-long periods where I practically starve myself. This follows periods when I overeat. It seems I live a life of either feast or famine. Response Group 9: C Group 10 A. I usually am able to stop eating when I want to. I know when enough is enough. B. Every so often, I experience a compulsion to eat which I can't seem to control. C. Frequently, I experience strong urges to eat which I seem unable to control, but at other times I can control my eating urges. D. I feel incapable of controlling urges to eat. I have a fear of not being able to stop eating voluntarily. Response Group 10: B Group 11 A. I don't have any problem stopping eating when I feel full. B. I usually can stop eating when I feel full but occasionally overeat leaving me feeling uncomfortably stuffed. C. I have a problem stopping eating once I start and usually I feel uncomfortably stuffed after I eat a meal. D. Because I have a problem not being able to stop eating when I want, I sometimes have to induce vomiting to relieve my stuffed feeling. Response Group 11: A Group 12 A. I seem to eat just as much when I'm with others, Family social gatherings as when I'm by myself. B. Sometimes, when I'm with other persons, I don't eat as much as I want to eat because I'm self-conscious about my eating. C. Frequently, I eat only a small amount of food when others are present, because I'm very embarrassed about my eating. D. I feel so ashamed about overeating that I pick times to overeat when I know no one will see me. I feel like a closet eater. Response Group 12: A Group 13 A. I eat three meals a day with only an occasional between meal snack. B. I eat 3 meals a day, but I also normally snack between meals. C. When I am snacking heavily, I get in the habit of skipping regular meals. D. There are regular periods when I seem to be continually eating, with no planned meals. Response Group 13: C Group 14 A. I don't think much about trying to control unwanted eating urges. B. At least some of the time, I feel my thoughts are pre-occupied with trying to control my eating urges. C. I feel that frequently I spend much time thinking about how much I ate or about trying not to eat anymore. D. It seems to me that most of my waking hours are pre-occupied by thoughts about eating or not eating. I feel like I'm constantly struggling not to eat. Response Group 14: A Group 15 A. I don't think about food a great deal. B. I have strong craving for food but they last only for brief periods of time. C. I have days when I can't seem to think about anything else but food. D. Most of my days seem to be pre-occupied with thoughts about food. I feel like I live to eat. Response Group 15: A Group 16 A. I usually know whether or not I'm physically hungry. I take the right portion of food to satisfy me. B. Occasionally, I feel uncertain about knowing whether or not I'm physically hungry. A these times it's hard to know how much food I should take to satisfy me. C. Even though I might know how many calories I should eat, I don't have any idea what is a normal amount of food for me. Response Group 16: C Binge Eating Score: 14 Score less than 17 Minimal Risk Score between 18-26 Moderate Risk Score between 27-46 High Risk Assessment & Plan Assessment & Plan (1) Bipolar 2 disorder: Code(s): F31.81 - Bipolar II disorder (2) Generalized anxiety disorder: Code(s): F41.1 - Generalized anxiety disorder (3) Sleeping difficulties: Code(s): G47.9 - Sleep disorder, unspecified (4) PTSD (post-traumatic stress disorder): Code(s): F43.10 - Post-traumatic stress disorder, unspecified Plan PT is cleared, however will need a follow up for support. Next oscar: 4-5 weeks. Telehealth Telehealth Location of provider rendering services: other (Home office [place], [place].) Patient Identification confirmed using: Name, : Yes Telehealth method: video Patient verbally consented to treatment: Yes Patient verbally consented to billing insurance company: Yes Patient informed of any privacy concerns related to visit: Yes Minutes spent on Phone/Video with Pt.: 45 Coding Level of Care Code Established Pt Tele Psytx 45 mins (88010) Patient Type Established Diagnoses Bipolar 2 disorder F31.81 Generalized anxiety disorder F41.1 Sleeping difficulties G47.9 PTSD (post-traumatic stress disorder) F43.10 Time Spent (min) 45
== END 2023-01-10 12:00 | disposition home or self-care (01) ==
LOC: HO.HBST 10:11
PROVIDERS: Visit Provider Counselor Mental Health
DX: F31.81 Bipolar II disorder (principal); F41.1 Generalized anxiety disorder; G47.9 Sleep disorder, unspecified; F43.10 Post-traumatic stress disorder, unspecified
CPT/HCPCS: 90834

== ENCOUNTER → 2023-01-10 10:00 | Outpatient (BNVA) | payer OTHER, MEDICARE, MEDICAID, SELFPAY | PROVIDERS: Visit Provider Counselor Mental Health ==

== ENCOUNTER 2023-01-16 15:40 | Outpatient (AMB) | payer OTHER, MEDICARE, MEDICAID, SELFPAY ==
--- NOTE | 2023-01-16 16:00 | A.OFFVIS_ITS ---
Intake VS Expanded 01/16/23 16:07 Height 5 ft 8 in Weight 294 lb 3.2 oz BMI 44.7 BP 134/70 Blood Pressure Location Rt brachial Blood Pressure Position Sitting Pulse 80 Pulse Source Pulse Oximeter Temp 96.9 F Temperature Source Tympanic Pulse Oximetry 95 Oxygen Delivery Method Room Air Body Fat 144.8 Body Fat Percentage 49.3 Free Fat Mass 149.2 Muscle Mass 141.8 Visceral Mass 14.0 Water Mass 107.0 BMR 2,163 Intake Visit Reasons: (OV) F/U SWL + H.Pylori Band Instrument Maker Required: No Allergies methylphenidate [Ritalin] Allergy (Unknown, Verified 01/16/23 16:02) Unknown Medication List - Last Reconciled 01/16/23 by IVY Zhu atorvastatin 80 mg PO DAILY clonazepam 1 mg PO BEDTIME desvenlafaxine succinate ER 50 mg PO DAILY eszopiclone mg PO folic acid 1 mg PO DAILY 90 days fremanezumab-vfrm (Ajovy) 225 mg subcut [id number] levothyroxine 75 mcg PO DAILY lurasidone (Latuda) 20 mg PO DAILY prazosin 1 mg PO BEDTIME pregabalin 75 mg PO BID rimegepant (Nurtec ODT) 75 mg PO Q OTHER DAY HPI HPI Comments History of Present Illness Details The patient is a pleasant 32 year old female who returns to the clinic for pre-operative surgical weight loss management. They were last seen in the office on 12/13/22, recorded weight at that time was 298.6 pounds, with a BMI of 45.4. Today's weight is 294.2 pounds and BMI is 44.4. There has been a weight loss of 9.2 pounds since initiating the surgical weight loss program on 11/17/22 with a total body weight loss of 3 %. Pre op work up completed as follows: SWL classes:? 0/8 BH appts: cleared 01/10/23 ? ? RD appts: needs f/u Labs: 01/05/23 low folate H. pylori: 12/13/22-neg CXR: 12/22/22-nad EKG: not yet done ABD U/S: 01/05/23-fatty liver UGI: 02/09/23 The patient reports things are going easier than expected. denies any issues. She has been eating bars but not no shakes, 3 bars Current meal plan includes: 2 Isopure shakes, (1 scoop in 8 oz low f at unsweetened almond milk each) First shake at 8am-10am, Second shake at 12pm-2pm 1 protein bar (Pure Protein bars at [employer], [facility], or [employer]) at 3pm-5pm. Dinner at 7pm (10 forks of protein and 10 forks of salad/vegetables). Drinking 80 oz oz of water Current exercise plan includes: stationary bike 10 minutes per day. PFSH Surgical History History of ankle surgery History of surgery on wrist Hx of section Hx of knee surgery Hx of ovarian cystectomy Family History Mother No problems noted. Father Afib Brother No problems noted. Sister No problems noted. Daughter Asthma Social History Alcohol intake: never Patient Tobacco Use Status: Never used Tobacco Review of Systems Const All systems reviewed & are unremarkable except as noted in HPI and below Physical Exam Const General: healthy appearing and no acute distress Resp Effort & Inspection: normal respiratory effort Auscultation: clear to auscultation bilaterally Cardio Rate: regular rate Rhythm: regular rhythm GI Auscultation: normal bowel sounds Extrem General: Yes normal to inspection Assessment & Plan Assessment & Plan (1) Morbid obesity: Code(s): E66.01 - Morbid (severe) obesity due to excess calories Plan: change meal plan to : Pure protein bar at 8am-10am, Pure protein bar at 12pm-2pm 1 isopure shake, 1 scoop at 3pm-5pm. Dinner at 7pm (10 forks of protein and 10 forks of salad/vegetables). Increase stationary bike. Schedule appt w RD RTC 3-4 weeks Making slow but steady progress Coding Level of Care Code Est Pt Level 3 (30016) Diagnoses Morbid obesity E66.01
[2023-01-16 16:07] VITALS: BP 134/70; PULSE 80; TEMP 36.1; O2SAT 95; BMI 44.7
== END 2023-01-16 16:36 | disposition home or self-care (01) ==
PROVIDERS: Visit Provider Physician Assistant Surgical
DX: E66.01 Morbid (severe) obesity due to excess calories (principal)
CPT/HCPCS: 99213

== ENCOUNTER → 2023-01-16 15:40 | Outpatient (BNVA) | payer OTHER, MEDICARE, MEDICAID, SELFPAY | PROVIDERS: Visit Provider Physician Assistant Surgical ==

== ENCOUNTER 2023-02-05 10:00 | Outpatient (AMB) | payer OTHER, MEDICARE, MEDICAID, SELFPAY ==
--- NOTE | 2023-02-05 10:27 | MHC.WMTHER ---
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: VIDEO BH F/U Allergies methylphenidate [Ritalin] Allergy (Unknown, Verified 01/16/23 16:02) Unknown PFSH Surgical History Hx of ovarian cystectomy Hx of section History of surgery on wrist History of ankle surgery Hx of knee surgery Family History Mother No problems noted. Father Afib Brother No problems noted. Sister No problems noted. Daughter Asthma Social History Alcohol intake: never Patient Tobacco Use Status: Never used Tobacco Behavioral Health Assessment Weight Management Therapy Therapy Notes Details PT is a 32 year old who presents for a follow up. PT reports she's doing better with changes in meal plan, as fits better her lifestyle. Also managing better stress and working on her sleep however spite having some disturbed dreams. INTERVENTIONS: Supported client with coping strategies for sleep challenges and stress management, we also completed PHQ-9 and reviewed BES. Assisted client scheduling a f/up with image scientist. RESPONSE: Pt cooperative and engaged. Responded well to interventions. Mental status exam withing normal limits, no risk identified. Scores in PHQ-9 suggest no active sx of depression and BES suggest progress around eating behavior. PLAN: Pt has been cleared and there is no need for a f/up. Presenting Concerns Referral Source WMP Provider. Reason for referral Completion of behavioral health assessment as part of process for weight-loss surgery. Precipitating Event Health issues and physical functioning. Living Situation Current Living Situation Own At risk of losing current housing? No Satisfied with current living situation? Yes Comments PT lives with spouse and 4 year old daughter. Food/Weight/Diet Expectations of change PT wants to lose weight and being healthy. History/Relationship with food PT reports she eats when she is told or has to eat or because is hungry. Used to skip meals, dinner was the main meal (chicken/veggies). History/Relationship with weight Most of weight gain after . Lowest weight around 200Lbs before turning 28. Highest weight when she started the program. History/Relationship with dieting Keto, intermittent fasting, counting calories, diet/exercise. When asked for long PT reported she never payed attention. Binge Eating Do you frequently eat large amounts of food in short periods of time, not feeling physically hungry? No Do you feel out of control when you eat a large amount of food in a short period of time? No Do you eat large amounts of food rapidly and typically alone? No Night Eating Do you wake up at least once during the night to eat? No If you wake up in the night, do you find that it is necessary to eat something in order to fall back asleep? No Do you have little or no appetite in the morning and feel very hungry in the evening, often overeating between dinner and when you go to bed? No Social History Family history and relationship PT lives with spouse, they have been together since 2012. They have 1 daughter together. Parents are alive, she has 2 siblings. She's close to her dad. Distant relationship with other family members. Parental/Familial manager simulation obligations 4 year old daughter. Developmental history and status Diagnosed with ADHD in childhood. She was in special education while in school. Social support Her pets. Community support PCP. Druze/Spirituality None reported. Cultural/Ethnic information white-. Legal Involvement and History Current or historical involvement with the legal system? None. Education Highest grade completed Some college. Preferred learning style Written, Learn by doing and Visual Currently enrolled in educational program? Yes ([employer] school. ) Interested in further educational program? No Educational Interests/Skills Animal training, good with horses. Employment Employment Status Unemployed Wants help to find employment? 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 Financial Situation Describe current financial situation Financial struggles are a major source of stress Financial assistance? Food [place] and Disability Service Service? 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 ) Mental Health and Addiction Treatment Current/Past substance abuse? No Current/Past addictive behavior concerns? No Psychiatric history PT Reports she had been in therapy before she had her daughter. Currently on a waiting list for counseling. Diagnosed with PTSD, Bipolar Dx, insomnia/night terrors, and Generalized anxiety. PCP is prescribing Psych meds (Clonazepam 1mg, prazosin 1mg, Latuda 20mg, Lunesta 1mg). She feels table with current meds. PT denies ever being in crisis and/or hospitalized for MH. Reported Hx of SI and self-harm (cutting) a long time ago but nothing within the last year. Medical and Physical Health Summary Additional Medical History not covered in history None. Sexual History concerns None Physical exam in the last year? Yes Pain Screening Current pain? Yes Pain in the last few months? 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 Medications Is the patient compliant with medications? Yes Does the patient have Gao Guardian in place? Not applicable Does the patient use complimentary health approaches? No Trauma/Abuse History History of trauma? Yes (PT declined to answer as she doesn't want to be triggered. ) Verbal/Emotional Abuse Current Current Involvement By None Reported Comments Past DCF involvement in her childhood and with her daughter. Additional Mandated Report Required None Reported Questionnaires PHQ-9 Over the last 2 weeks, how often have you been bothered by any of the following problems? 1. Little interest or pleasure in doing things: not at all 2. Feeling down, depressed, or hopeless: several days 3. Trouble falling or staying asleep, or sleeping too much: several days (nightmares) 4. Feeling tired or having little energy: several days 5. Poor appetite or overeating: not at all 6. Feeling bad about yourself - or that you are a failure or have let yourself or your family down: not at all 7. Trouble concentrating on things, such as reading the newspaper or watching television: not at all 8. Moving or speaking so slowly that other people could have noticed. Or the opposite - being so fidgety or restless that you have been moving around a lot more than usual: not at all 9. Thoughts that you would be better off or of hurting yourself in some way: not at all Total score: 3 Depression Screening Interpretation: Negative 34636 - PHQ-9 Billing: Yes Source: Developed by Drs. Cj Matos, Aimee Lamb, Harvey Abdi and colleagues, with an educational ever from [employer]. Binge Eating Scale Group 1 A. I don't feel self-conscious about my wt. or body size when I'm with others. B. I feel concerned about how I look to others, but it normally does not make me fell disappointed with myself C. I do get self-conscious about my appearance and wt. which makes me feel disappointed in myself. D. I feel very self-conscious about my wt. and frequently I feel intense shame and disgust for myself. I try to avoid social contacts because of my self-consciousness. Response Group 1: D Group 2 A. I don't have any difficulty eating slowly in the proper manner. B. Although I seem to gobble down foods, I don't end up feeling stuffed because of eating to much. C. At times, I tend to eat quickly and then, I feel uncomfortably full afterwards. D. I have the habit of bolting down my food, without really chewing it. When this happens I usually feel uncomfortably stuffed because I've eaten to much. Response Group 2: C Group 3 A. I feel capable to control my eating urges when I want to. B. I feel like I have failed to control my eating more than the average person. C. I feel utterly helpless when it comes to feeling in control of my eating urges. D. Because I feel so helpless about controlling my eating I have become very desperate about trying to get control. Response Group 3: A Group 4 A. I don't have the habit of eating when I'm bored. B. I sometimes eat when I'm bored, but often I'm able to get busy and get my mind off food. C. I have a regular habit of eating when I'm bored, but occasionally, I can use some other activity to get my mind off eating. D. I have a strong habit of eating when I'm bored. Nothing seems to help me breath the habit. Response Group 4: A Group 5 A. I'm usually physically hungry when I eat something. B. Occasionally, I eat something on impulse even though I really am not hungry. C. I have the regular habit of eating foods, that I might not really enjoy, to satisfy a hungry feeling even though physically, I don't need the food. D. Although I'm not physically hungry, I get a hungry feeling in my mouth that only seems to be satisfied when I eat a food, like sandwich, that fills my mouth. Sometimes, when I eat the food to satisfy my mouth hunger, I then spit the food out so I won't gain weight. Response Group 5: B Group 6 A. I don't feel any guilt or self-hate after I overeat. B. After I overeat, occasionally I feel guilt or self-hate. C. Almost all the time I experience strong guilt or self-hate after I overeat. Response Group 6: B Group 7 A. I don't lose total control of my eating when dieting even after periods when I overeat. B. Sometimes when I eat a forbidden food on a diet, I feel like I blew it and eat even more. C. Frequently, I have the habit of saying to myself, I've blown it now, why not go all the way, when I overeat on a diet. When that happens I eat more. D. I have a regular habit of starting a strict diets for myself but I break the diets by going on an eating binge. My life seems to be either a feast or famine. Response Group 7: A Group 8 A. I rarely eat so much food that I feel uncomfortably stuffed afterwards. B. Usually about once a month, I each such a quantity of food, I end up feeling very stuffed. C. I have regular periods during the month when I eat large amounts of food, either at mealtime or at snacks. D. I eat so much food that I regularly feel quite uncomfortable after eating and sometimes a bit nauseous. Response Group 8: A Group 9 A. My level of calorie intake does not go up very high or go down very low on a regular basis. B. Sometimes after I overeat, I will try to reduce my caloric intake to almost nothing to compensate for the excess calories I've eaten. C. I have a regular habit of overeating during the night. It seems that my routine is not to be hungry in the morning but overeat in the evening. D. In my adult years, I have had week-long periods where I practically starve myself. This follows periods when I overeat. It seems I live a life of either feast or famine. Response Group 9: A Group 10 A. I usually am able to stop eating when I want to. I know when enough is enough. B. Every so often, I experience a compulsion to eat which I can't seem to control. C. Frequently, I experience strong urges to eat which I seem unable to control, but at other times I can control my eating urges. D. I feel incapable of controlling urges to eat. I have a fear of not being able to stop eating voluntarily. Response Group 10: A Group 11 A. I don't have any problem stopping eating when I feel full. B. I usually can stop eating when I feel full but occasionally overeat leaving me feeling uncomfortably stuffed. C. I have a problem stopping eating once I start and usually I feel uncomfortably stuffed after I eat a meal. D. Because I have a problem not being able to stop eating when I want, I sometimes have to induce vomiting to relieve my stuffed feeling. Response Group 11: A Group 12 A. I seem to eat just as much when I'm with others, Family social gatherings as when I'm by myself. B. Sometimes, when I'm with other persons, I don't eat as much as I want to eat because I'm self-conscious about my eating. C. Frequently, I eat only a small amount of food when others are present, because I'm very embarrassed about my eating. D. I feel so ashamed about overeating that I pick times to overeat when I know no one will see me. I feel like a closet eater. Response Group 12: A Group 13 A. I eat three meals a day with only an occasional between meal snack. B. I eat 3 meals a day, but I also normally snack between meals. C. When I am snacking heavily, I get in the habit of skipping regular meals. D. There are regular periods when I seem to be continually eating, with no planned meals. Response Group 13: A (Following meal plan.) Group 14 A. I don't think much about trying to control unwanted eating urges. B. At least some of the time, I feel my thoughts are pre-occupied with trying to control my eating urges. C. I feel that frequently I spend much time thinking about how much I ate or about trying not to eat anymore. D. It seems to me that most of my waking hours are pre-occupied by thoughts about eating or not eating. I feel like I'm constantly struggling not to eat. Response Group 14: A Group 15 A. I don't think about food a great deal. B. I have strong craving for food but they last only for brief periods of time. C. I have days when I can't seem to think about anything else but food. D. Most of my days seem to be pre-occupied with thoughts about food. I feel like I live to eat. Response Group 15: A Group 16 A. I usually know whether or not I'm physically hungry. I take the right portion of food to satisfy me. B. Occasionally, I feel uncertain about knowing whether or not I'm physically hungry. A these times it's hard to know how much food I should take to satisfy me. C. Even though I might know how many calories I should eat, I don't have any idea what is a normal amount of food for me. Response Group 16: B Binge Eating Score: 8 Score less than 17 Minimal Risk Score between 18-26 Moderate Risk Score between 27-46 High Risk Assessment & Plan Assessment & Plan (1) Bipolar 2 disorder: Code(s): F31.81 - Bipolar II disorder (2) Generalized anxiety disorder: Code(s): F41.1 - Generalized anxiety disorder (3) Sleeping difficulties: Code(s): G47.9 - Sleep disorder, unspecified (4) PTSD (post-traumatic stress disorder): Code(s): F43.10 - Post-traumatic stress disorder, unspecified Plan Kepp Benny with Alteration Tailor (03/02 @1:30pm) Pt is cleared from , and there is no need for a f/up Telehealth Telehealth Location of provider rendering services: other Location of patient: other (At home. [place], [place]) Patient Identification confirmed using: Name, : Yes Telehealth method: video Patient verbally consented to treatment: Yes Patient verbally consented to billing insurance company: Yes Patient informed of any privacy concerns related to visit: Yes Minutes spent on Phone/Video with Pt.: 45 Coding Level of Care Code Established Pt Tele Psytx 45 mins (83123) Patient Type Established Diagnoses Bipolar 2 disorder F31.81 Generalized anxiety disorder F41.1 Sleeping difficulties G47.9 PTSD (post-traumatic stress disorder) F43.10 Time Spent (min) 45
== END 2023-02-05 10:53 | disposition home or self-care (01) ==
LOC: HO.HBST 10:43
PROVIDERS: Visit Provider Counselor Mental Health
DX: F31.81 Bipolar II disorder (principal); F41.1 Generalized anxiety disorder; G47.9 Sleep disorder, unspecified; F43.10 Post-traumatic stress disorder, unspecified
CPT/HCPCS: 90834

== ENCOUNTER → 2023-02-05 10:00 | Outpatient (BNVA) | payer OTHER, MEDICARE, MEDICAID, SELFPAY | PROVIDERS: Visit Provider Counselor Mental Health ==

== ENCOUNTER 2023-02-13 09:44 | Outpatient (AMB) | payer OTHER, MEDICARE, MEDICAID, SELFPAY ==
--- NOTE | 2023-02-13 09:15 | MHC.OFFVISWM ---
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: No Allergies methylphenidate [Ritalin] Allergy (Unknown, Verified 01/16/23 16:02) Unknown Medication List - Last Reconciled 02/13/23 by IVY Zhu atorvastatin 80 mg PO DAILY clonazepam 1 mg PO BEDTIME desvenlafaxine succinate ER 50 mg PO DAILY eszopiclone mg PO folic acid 1 mg PO DAILY 90 days fremanezumab-vfrm (Ajovy) 225 mg subcut J2RYONTO levothyroxine 75 mcg PO DAILY lurasidone (Latuda) 20 mg PO DAILY prazosin 1 mg PO BEDTIME pregabalin 75 mg PO BID rimegepant (Nurtec ODT) 75 mg PO Q OTHER DAY HPI HPI Comments History of Present Illness Details The patient is a pleasant 32 year old female who returns to the clinic for pre-operative surgical weight loss management. They were last seen in the office on 01/16/23, recorded weight at that time was 294.2 pounds, with a BMI of 44.7. Today's weight is 295.4 pounds and BMI is 44.9. There has been a weight loss of 8 pounds since initiating the surgical weight loss program on 11/17/22 with a total body weight loss of 2.6 %. Pre op work up completed as follows: SWL classes:? 0/8 BH appts: cleared 01/10/23 ? ? RD appts: f/u 03/02/23 Labs: 01/05/23 low folate H. pylori: 12/13/22-neg CXR: 12/22/22-nad EKG: not yet done ABD U/S: 01/05/23-fatty liver UGI: 02/09/23 - missed due to having to bring kids to school. The patient reports things are going up and down. Weight loss has been inconsistent. She states she has been consistent with meal plan with exercise bike is getting more consistent. Current meal plan includes: Pure protein bar at 8am-10am, Pure protein bar at 12pm-2pm 1 isopure shake, 1 scoop at 3pm-5pm. Dinner at 7pm (10 forks of protein and 10 forks of salad/vegetables). Drinking 96-128 oz oz of water Current exercise plan includes: stationary bike 15-30 minutes nightly up from 10 minutes. not sure if the bike is tracking calories but her watch says 80-150. PFSH Surgical History Hx of ovarian cystectomy Hx of section History of surgery on wrist History of ankle surgery Hx of knee surgery Family History Mother No problems noted. Father Afib Brother No problems noted. Sister No problems noted. Daughter Asthma Social History Alcohol intake: never Patient Tobacco Use Status: Never used Tobacco Assessment & Plan Assessment & Plan (1) Morbid obesity: Code(s): E66.01 - Morbid (severe) obesity due to excess calories Plan: Patient will need to reschedule her upper GI. Continue meal plan. Encouraged increased exercise to a consistent 20-30 minutes daily with a goal of twice daily given her complaint of leg pain. She was reminded of the caloric burn goal of 300 calories daily. Return to clinic 3 weeks. Telehealth Telehealth Location of provider rendering services: practice address Location of patient: address on file Patient Identification confirmed using: Name, : Yes Telehealth method: video Patient verbally consented to treatment: Yes Patient verbally consented to billing insurance company: Yes Patient informed of any privacy concerns related to visit: Yes Minutes spent on Phone/Video with Pt.: 15 Coding Level of Care Code Tele Est Pt Level 3 (63592) Diagnoses Morbid obesity E66.01 Time Spent (min) 20
[2023-02-13 09:19] VITALS: BMI 44.9
== END 2023-02-13 09:46 | disposition home or self-care (01) ==
LOC: HO.HBS 09:44
PROVIDERS: Visit Provider Physician Assistant Surgical
DX: E66.01 Morbid (severe) obesity due to excess calories (principal)
CPT/HCPCS: 99213

== ENCOUNTER → 2023-02-13 09:44 | Outpatient (BNVA) | payer OTHER, MEDICARE, MEDICAID, SELFPAY | PROVIDERS: Visit Provider Physician Assistant Surgical ==

== ENCOUNTER 2023-02-15 08:35 | Outpatient (REF) | payer OTHER, MEDICARE, MEDICAID, SELFPAY ==
--- NOTE | ~2023-02-15 | FL_ITS ---
EXAMINATION: XR FLUOROSCOPY UPPER GI WITH AIR CLINICAL INFORMATION: Preop bariatric; obesity; morbid obesity due to excess calories; COMPARISON: No prior. TECHNIQUE: Fluoroscopic air contrast upper GI examination was performed utilizing standard techniques with thin and thick barium and effervescent granules. Numerous spot images were obtained, as well as fluoroscopic image hold runs. FINDINGS: No tracheal penetration, glottic or subglottic aspiration identified. Hypopharyngeal structures appear normal without evidence of mass or diverticulum. There was no significant cricopharyngeal achalasia. Dual and single contrast images of the esophagus demonstrate normal caliber, contour, and mucosal pattern. No evidence of stricture, mass, or ulcerations identified. Esophageal peristalsis was normal. Suspect a small type I hiatus hernia versus a prominent esophageal vestibule. Small remnant of a Schatzki's ring is present on the prone single contrast images. Minimal gastroesophageal reflux was evident during the examination only approximately 2-3 vertebral levels. Dual contrast and single contrast images of the stomach demonstrated normal contour and mucosal pattern without evidence of mass, ulceration, or other abnormality. Somewhat suboptimal coating of the lesser curvature was noted. Contrast freely passed into the gastric antrum and duodenal bulb without delay. Single and air-contrast images of the duodenal bulb demonstrate no abnormality. The duodenal sweep has a normal appearance, course, and mucosal fold appearance. The imaged proximal jejunum has a normal fold pattern and caliber. Incidental note was abundant stool seen throughout the colon consistent with constipation. FLUOROSCOPY TIME: 4 minutes 7 seconds Number of Spot Images: 3 cine fluoroscopic image hold runs obtained; 15 fluoroscopic spot images taken. DOSE AREA PRODUCT: [id number] uGy-m2 (microgray-meter squared) FL/FL upper GI w air IMPRESSION: 1. Suspect a small type I hiatus hernia. Small remnant of a Schatzki's ring suspected. Minimal gastroesophageal reflux was noted. No esophageal mucosal abnormalities. 2. Normal-appearing stomach, duodenal bulb, duodenal sweep, and proximal small bowel. 3. Constipation incidentally noted.
== END 2023-02-15 08:36 | disposition home or self-care (01) ==
LOC: HO.XRAY 08:35
PROVIDERS: Visit Provider Physician Assistant Surgical
DX: Z01.818 Encounter for other preprocedural examination (principal); E66.01 Morbid (severe) obesity due to excess calories; E78.00 Pure hypercholesterolemia, unspecified
CPT/HCPCS: 74246

== ENCOUNTER → 2023-02-15 08:37 | Outpatient (BNV) | payer OTHER, MEDICARE, MEDICAID, SELFPAY | PROVIDERS: Visit Provider Radiology Diagnostic Radiology | DX: Z01.818 Encounter for other preprocedural examination (principal); E66.01 Morbid (severe) obesity due to excess calories | CPT/HCPCS: 74246 ==

== ENCOUNTER 2023-03-08 12:18 | Outpatient (AMB) | payer OTHER, MEDICARE, MEDICAID, SELFPAY ==
[2023-03-08 09:35] VITALS: BMI 44.7
--- NOTE | 2023-03-08 09:35 | A.OFFVIS_ITS ---
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 Allergies methylphenidate [Ritalin] Allergy (Unknown, Verified 01/16/23 16:02) Unknown Medication List - Last Reconciled 03/08/23 by IVY Zhu atorvastatin 80 mg PO DAILY clonazepam 1 mg PO BEDTIME desvenlafaxine succinate ER 50 mg PO DAILY eszopiclone mg PO folic acid 1 mg PO DAILY 90 days fremanezumab-vfrm (Ajovy) 225 mg subcut [id number] levothyroxine 75 mcg PO DAILY lurasidone (Latuda) 20 mg PO DAILY prazosin 1 mg PO BEDTIME pregabalin 75 mg PO BID rimegepant (Nurtec ODT) 75 mg PO Q OTHER DAY HPI HPI Comments History of Present Illness Details The patient is a pleasant 32 year old female who returns to the clinic for pre-operative surgical weight loss management. They were last seen in the office on 02/13/23, recorded weight at that time was 295.4 pounds, with a BMI of 44.9. Today's weight is 294 pounds and BMI is 44.7. There has been a weight loss of 9.4 pounds since initiating the surgical weight loss program on with a total body weight loss of 3 %. Pre op work up completed as follows: SWL classes:? 0/8 BH appts: cleared 01/10/23 ? ? RD appts: f/u 03/02/23 Labs: 01/05/23 low folate H. pylori: 12/13/22-neg CXR: 12/22/22-nad EKG: not yet done ABD U/S: 01/05/23-fatty liver UGI: 02/15/23 The patient she has had strep throat over the last week. She has been able to follow the meal plan while ill but has not been as active. She has had chronic left ankle pain with a hx of 4 surgeries and has seen 3 different ortho surgeons. She states the bone in her ankle is dying and the cartilage is falling off talus causing it to collapse. Has been to [facility]. Her ankle is the limiting factor for her exercise. She states that she has been told that she is too young for an ankle fusion. She is not going to pursure this any further at this time. Current meal plan includes: Pure protein bar at 8am-10am, Pure protein bar at 12pm-2pm 1 isopure shake, 1 scoop at 3pm-5pm. Dinner at 7pm (10 forks of protein and 10 forks of salad/vegetables). Drinking 64 oz of water Current exercise plan includes: stationary bike 20 minutes nightly up from 10 minutes. not sure if the bike is tracking calories but her watch says 80-150. [facility] Surgical History Hx of ovarian cystectomy Hx of section History of surgery on wrist History of ankle surgery Hx of knee surgery Family History Mother No problems noted. Father Afib Brother No problems noted. Sister No problems noted. Daughter Asthma Social History Alcohol intake: never Patient Tobacco Use Status: Never used Tobacco Review of Systems Const All systems reviewed & are unremarkable except as noted in HPI and below Assessment & Plan Assessment & Plan (1) Morbid obesity: Code(s): E66.01 - Morbid (severe) obesity due to excess calories Plan: Discussed the possibility of joining [employer] in [facility] but she states she does not have the finances to afford it. She was encouraged to contact her [employer] to inquire about coverage for gym membership and she will contact me if they will cover. Try to increase exercise to 20 minutes 2-3 times daily Continue meal plan RD appt rescheduled for 03/22/23 Telehealth Telehealth Location of provider rendering services: practice address Location of patient: address on file Patient Identification confirmed using: Name, : Yes Telehealth method: voice only Patient verbally consented to treatment: Yes Patient verbally consented to billing insurance company: Yes Patient informed of any privacy concerns related to visit: Yes Minutes spent on Phone/Video with Pt.: 20 Coding Level of Care Code Tele Est Pt Level 3 (90629) Diagnoses Morbid obesity E66.01 Time Spent (min) 30
== END 2023-03-08 12:49 | disposition home or self-care (01) ==
LOC: HO.HBS 12:18
PROVIDERS: Visit Provider Physician Assistant Surgical
DX: E66.01 Morbid (severe) obesity due to excess calories (principal)
CPT/HCPCS: 99213

== ENCOUNTER → 2023-03-08 12:18 | Outpatient (BNVA) | payer OTHER, MEDICARE, MEDICAID, SELFPAY | PROVIDERS: Visit Provider Physician Assistant Surgical ==

== ENCOUNTER → 2023-03-22 13:10 | Outpatient (BNVA) | payer OTHER, MEDICARE, MEDICAID, SELFPAY | PROVIDERS: Visit Provider Dietitian, Registered | DX: E66.9 Obesity, unspecified (principal); Z71.3 Dietary counseling and surveillance | CPT/HCPCS: 97803 ==

== ENCOUNTER 2023-04-03 13:40 | Outpatient (AMB) | payer OTHER, MEDICARE, MEDICAID, SELFPAY ==
--- NOTE | 2023-04-03 12:25 | MHC.OFFVISWM ---
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 They were last seen in the office on 03/08/23, recorded weight at that time was 294 pounds, with a BMI of 46.7. Today's weight is 302 pounds and BMI is 45.9. There has been a weight loss of 1.4 pounds since initiating the surgical weight loss program on 11/17/22 with a total body weight loss of 0.46 %. Pre op work up completed as follows: SWL classes:? 0 BH appts: cleared 01/10/23 ? ? RD appts: cleared 03/22/23 Labs: 01/05/23 low folate H. pylori: 12/13/22-neg CXR: 12/22/22-nad EK02/14/23-normal (scanned doc) ABD U/S: 01/05/23-fatty liver UGI: 02/15/23- ?small HH. She states things are not going well. She states she is following the meal plan. She is able to recount the meal plan exactly. 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 She has had chronic left ankle pain with a hx of 4 surgeries and has seen 3 different ortho surgeons. She states the bone in her ankle is dying and the cartilage is falling off talus causing it to collapse. Has been to [facility]. Her ankle is the limiting factor for her exercise. She states that she has been told that she is too young for an ankle fusion. She is not going to pursure this any further at this time. Current meal plan includes: Pure protein bar at 8am-10am, Pure protein bar at 12pm-2pm 1 isopure shake, 1 scoop at 3pm-5pm. Dinner at 7pm (10 forks of protein and 10 forks of salad/vegetables). Drinking 64 oz of water Current exercise plan includes: stationary bike 15 minutes twice daily. Does not have the time to commit more. not sure if the bike is tracking calories but her watch says 80-100. PFSH Surgical History Hx of ovarian cystectomy Hx of section History of surgery on wrist History of ankle surgery Hx of knee surgery Family History Mother No problems noted. Father Afib Brother No problems noted. Sister No problems noted. Daughter Asthma Social History Alcohol intake: never Patient Tobacco Use Status: Never used Tobacco Assessment & Plan Assessment & Plan (1) Morbid obesity: Code(s): E66.01 - Morbid (severe) obesity due to excess calories Plan: Discussed that the patient is following the meal plan exactly however her exercise is limited. 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 We discussed target heart rate zone of cardiovascular activity. She will consider over the next 3-4 weeks how she may incorporate more exercise into her schedule. Telehealth Telehealth Location of provider rendering services: practice address Location of patient: address on file Patient Identification confirmed using: Name, : Yes Telehealth method: voice only Patient verbally consented to treatment: Yes Patient verbally consented to billing insurance company: Yes Patient informed of any privacy concerns related to visit: Yes Minutes spent on Phone/Video with Pt.: 18 Coding Level of Care Code Tele Est Pt Level 3 (14698) Diagnoses Morbid obesity E66.01 Time Spent (min) 20
[2023-04-03 12:26] VITALS: BMI 45.9
== END 2023-04-03 13:45 | disposition home or self-care (01) ==
LOC: HO.HBS 13:41
PROVIDERS: Visit Provider Physician Assistant Surgical
DX: E66.01 Morbid (severe) obesity due to excess calories (principal)
CPT/HCPCS: 99213

== ENCOUNTER → 2023-04-03 13:40 | Outpatient (BNVA) | payer OTHER, MEDICARE, MEDICAID, SELFPAY | PROVIDERS: Visit Provider Physician Assistant Surgical ==

== ENCOUNTER 2023-05-01 09:23 | Outpatient (AMB) | payer OTHER, MEDICARE, MEDICAID, SELFPAY ==
--- NOTE | 2023-05-01 09:08 | A.OFFVIS_ITS ---
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 Allergies methylphenidate [Ritalin] Allergy (Unknown, Verified 01/16/23 16:02) Unknown Medication List - Last Reconciled 05/01/23 by IVY Zhu atorvastatin 80 mg PO DAILY clonazepam 1 mg PO BEDTIME desvenlafaxine succinate ER 50 mg PO DAILY eszopiclone mg PO folic acid 1 mg PO DAILY 90 days fremanezumab-vfrm (Ajovy) 225 mg subcut [id number] levothyroxine 75 mcg PO DAILY lurasidone (Latuda) 20 mg PO DAILY prazosin 1 mg PO BEDTIME pregabalin 75 mg PO BID rimegepant (Nurtec ODT) 75 mg PO Q OTHER DAY HPI HPI Comments History of Present Illness Details The patient is a pleasant 32 year old female who returns to the clinic for pre-operative surgical weight loss management. They were last seen in the office on 04/03/23, recorded weight at that time was 302 pounds, with a BMI of 45.9. She states her scale isn't working anymore. She has tried to reset it and does not have the ability to buy another one. Her last documented weight was 301.4 with a BMI of 46.2 on 04/16/23. There has been a weight loss of 2 pounds since initiating the surgical weight loss program on 11/17/22 with a total body weight loss of 0.6 %. Pre op work up completed as follows: SWL classes:? 0 BH appts: cleared 01/10/23 ? ? RD appts: cleared 03/22/23 Labs: 01/05/23 low folate H. pylori: 12/13/22-neg CXR: 12/22/22-nad EK02/14/23-normal (scanned doc) ABD U/S: 01/05/23-fatty liver UGI: 02/15/23-? small HH. She states things are not going well. 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 She is able to afford her meal plan based on the use of food stamps She has had chronic left ankle pain with a hx of 4 surgeries and has seen 3 different ortho surgeons. She states the bone in her ankle is dying and the cartilage is falling off talus causing it to collapse. Has been to [facility]. Her ankle is the limiting factor for her exercise. She states that she has been told that she is too young for an ankle fusion. She is not going to pursue this any further at this time. Current meal plan includes: Pure protein bar at 8am-10am, Pure protein bar at 12pm-2pm 1 isopure shake, 1 scoop at 3pm-5pm. Dinner at 7pm (10 forks of protein and 10 forks of salad/vegetables). Drinking 64 oz of water Exercise plan: stationary bike 20 minutes 2 x per day. can't track calories due to old bike walking 1.3 miles per day PFSH Surgical History Hx of ovarian cystectomy Hx of section History of surgery on wrist History of ankle surgery Hx of knee surgery Family History Mother No problems noted. Father Afib Brother No problems noted. Sister No problems noted. Daughter Asthma Social History Alcohol intake: never Patient Tobacco Use Status: Never used Tobacco Assessment & Plan Assessment & Plan (1) Morbid obesity: Code(s): E66.01 - Morbid (severe) obesity due to excess calories Plan: Exercising remains the rate limiting factor. I have discussed this multiple times with the patient and she is trying to do the best that she can. She has very limited money and is using food stamps for the meal plan which she states she has been following diligently. Will have her have an appointment with Dr. Burk for any new approaches or suggestions to help her achieve her goals. She will then return back to me for continued preoperative care. Telehealth Telehealth Location of provider rendering services: practice address Location of patient: address on file Patient Identification confirmed using: Name, : Yes Telehealth method: voice only Patient verbally consented to treatment: Yes Patient verbally consented to billing insurance company: Yes Patient informed of any privacy concerns related to visit: Yes Minutes spent on Phone/Video with Pt.: 12 Coding Level of Care Code Tele Est Pt Level 3 (93621) Diagnoses Morbid obesity E66.01 Time Spent (min) 15
== END 2023-05-01 09:25 | disposition home or self-care (01) ==
LOC: HO.HBS 09:23
PROVIDERS: Visit Provider Physician Assistant Surgical
DX: E66.01 Morbid (severe) obesity due to excess calories (principal)
CPT/HCPCS: 99213

== ENCOUNTER → 2023-05-01 09:23 | Outpatient (BNVA) | payer OTHER, MEDICARE, MEDICAID, SELFPAY | PROVIDERS: Visit Provider Physician Assistant Surgical ==